=== PATIENT | male | born 1970 | race Caucasian/White ===

== ENCOUNTER 2016-11-21 13:08 | Inpatient (IN) | payer OTHER ==
[2016-11-21] MEDS ORDERED: HYDROmorphone 1 MG/ML 1 ML SYRINGE IVP STA (13:51)
[2016-11-21] MEDS ORDERED: SODIUM CHLORIDE 0.9% 1,000 ML IV STA (13:51)
--- NOTE | 2016-11-21 13:55 | ED ---
General Adult HPI - General Chief complaint: Extremity Problem,Nontraumatic Stated complaint: poss DVT left leg Time Seen by Provider: 11/21/16 13:35 Source: patient, family, RN notes reviewed Mode of arrival: ambulatory Limitations: no limitations - History of Present Illness Initial comments: Patient is a pleasant 46-year-old male presenting to the emergency Department with left leg problems. Symptoms have been ongoing for a few months. Patient has seen orthopedics and pain specialist for this. Patient had MRI showing disc herniation on the right side. Patient's discomfort however is on the left side. Patient states the pain management doctor did notice some weakness of the left leg. Patient was recently in the emergency department and diagnosed with superficial thrombosis. Patient was started on xarelto, then this was discontinued for epidural injection. Patient had leg swelling and repeat ultrasound showed DVT of the calf and behind the knee. Patient has been on blood thinners for the past 4 days. Patient is having some increase in swelling and increasing left calf pain especially with placing foot down to bear weight. Patient has continued left-sided back discomfort with left leg discomfort. - Related Data Home Medications Medication Instructions Recorded Confirmed Gabapentin [Neurontin] 300 mg PO TID 11/21/16 11/21/16 Previous Rx's Medication Instructions Recorded Diazepam [Valium] 10 mg PO TID #30 tablet 10/23/16 HYDROcodone/APAP 5-325MG [[place] 1 - 2 tab PO Q6HR PRN #30 tab 10/23/16 5-325] HYDROmorphone [Dilaudid] 2 mg PO Q3H PRN #30 tab 10/26/16 Rivaroxaban [Xarelto] 15 mg PO BID #42 tab 10/26/16 Allergies Allergy/AdvReac Type Severity Reaction Status Date / Time No Known Allergies Allergy Verified 11/21/16 13:59 Review of Systems ROS Statement: Those systems with pertinent positive or pertinent negative responses have been documented in the HPI. ROS Other: All systems not noted in ROS Statement are negative. Constitutional: Denies: fever Eyes: Denies: eye pain ENT: Denies: ear pain Respiratory: Denies: cough, dyspnea Cardiovascular: Denies: chest pain Endocrine: Denies: fatigue Gastrointestinal: Denies: abdominal pain Genitourinary: Denies: dysuria Musculoskeletal: Reports: back pain Skin: Denies: rash Neurological: Denies: weakness Past Medical History Past Medical History: Deep Vein Thrombosis (DVT) Additional Past Medical History / Comment(s): testicular ca, kidney stone, History of Any Multi-Drug Resistant Organisms: None Reported Additional Past Surgical History / Comment(s): Left testical removal, right broken thumb Past Psychological History: No Psychological Hx Reported Smoking Status: Never smoker Past Alcohol Use History: None Reported Past Drug Use History: None Reported General Exam Limitations: no limitations General appearance: alert, in no apparent distress Head exam: Present: atraumatic Eye exam: Present: normal appearance, PERRL ENT exam: Present: normal oropharynx Neck exam: Present: normal inspection Respiratory exam: Present: normal lung sounds bilaterally Cardiovascular Exam: Present: regular rate, normal rhythm Expanded Peripheral pulses: 2+: Posterior Tibialis (R), Posterior Tibialis (L), Dorsalis Pedis (R), Dorsalis Pedis (L) GI/Abdominal exam: Present: soft. Absent: tenderness Extremities exam: Present: calf tenderness (Left-sided), other (Straight leg raise positive on the left at 35.) Back exam: Present: normal inspection. Absent: tenderness Neurological exam: Present: alert, other (Decreased strength with dorsiflexion on the left, minimal.) Psychiatric exam: Present: normal affect, normal mood Skin exam: Absent: rash Course Vital Signs 11/21/16 11/21/16 13:35 15:42 Temperature 97.3 F L Pulse Rate 89 79 Respiratory 18 18 Rate Blood Pressure 131/85 127/97 O2 Sat by Pulse 95 95 Oximetry EKG Findings - EKG Comments: EKG Findings:: Normal sinus rhythm 73. Normal intervals. Normal axis. Normal QRS. Normal ST-T. Medical Decision Making - Medical Decision Making Patient reexamined and resting comfortably in bed. Patient and family updated on results and plan. Case was discussed in detail with Dr. Sotomayor, who will admit for Dr. Earl. Case was previously discussed with Dr. marc, who would like to consult. Patient has been back on xarelto for only 4 days however there is concern for possible extension of DVT. Ultrasound will need to be compared from the ultrasound done in the office this past week. Patient may need change in anticoagulant. Patient will also benefit from further evaluation for back problems and DVT. - Lab Data Result diagrams: 11/21/16 14:04 11/21/16 14:04 Lab Results 11/21/16 11/21/16 11/21/16 Range/Units 14:04 14:04 14:04 WBC 10.4 (3.8-10.6) k/uL RBC 4.97 (4.30-5.90) m/uL Hgb 14.7 (13.0-17.5) gm/dL Hct 43.6 (39.0-53.0) % MCV 87.8 (80.0-100.0) fL MCH 29.5 (25.0-35.0) pg MCHC 33.7 (31.0-37.0) g/dL RDW 13.1 (11.5-15.5) % Plt Count 225 (150-450) k/uL Neutrophils % 66 % Lymphocytes % 25 % Monocytes % 6 % Eosinophils % 2 % Basophils % 1 % Neutrophils # 6.8 (1.3-7.7) k/uL Lymphocytes # 2.6 (1.0-4.8) k/uL Monocytes # 0.6 (0-1.0) k/uL Eosinophils # 0.2 (0-0.7) k/uL Basophils # 0.1 (0-0.2) k/uL PT (9.0-12.0) sec INR (<1.1) APTT (22.0-30.0) sec Sodium 144 (137-145) mmol/L Potassium 3.8 (3.5-5.1) mmol/L Chloride 105 (98-107) mmol/L Carbon Dioxide 27 (22-30) mmol/L Anion Gap 12 mmol/L BUN 16 (9-20) mg/dL Creatinine 1.04 (0.66-1.25) mg/dL Est GFR (MDRD) Af Amer >60 (>60 ml/min/1.73 sqM) Est GFR (MDRD) Non-Af >60 (>60 ml/min/1.73 sqM) Glucose 116 H (74-99) mg/dL Calcium 9.0 (8.4-10.2) mg/dL Total Bilirubin 0.5 (0.2-1.3) mg/dL AST 35 (17-59) U/L ALT 70 (21-72) U/L Alkaline Phosphatase 69 (38-126) U/L Total Creatine Kinase 64 (55-170) U/L CK-MB (CK-2) 0.9 (0.0-2.4) ng/mL CK-MB (CK-2) Rel Index 1.4 Troponin I <0.012 (0.000-0.034) ng/mL Total Protein 7.1 (6.3-8.2) g/dL Albumin 4.1 (3.5-5.0) g/dL 11/21/16 Range/Units 14:04 WBC (3.8-10.6) k/uL RBC (4.30-5.90) m/uL Hgb (13.0-17.5) gm/dL Hct (39.0-53.0) % MCV (80.0-100.0) fL MCH (25.0-35.0) pg MCHC (31.0-37.0) g/dL RDW (11.5-15.5) % Plt Count (150-450) k/uL Neutrophils % % Lymphocytes % % Monocytes % % Eosinophils % % Basophils % % Neutrophils # (1.3-7.7) k/uL Lymphocytes # (1.0-4.8) k/uL Monocytes # (0-1.0) k/uL Eosinophils # (0-0.7) k/uL Basophils # (0-0.2) k/uL PT 12.0 (9.0-12.0) sec INR 1.2 (<1.1) APTT 29.0 (22.0-30.0) sec Sodium (137-145) mmol/L Potassium (3.5-5.1) mmol/L Chloride (98-107) mmol/L Carbon Dioxide (22-30) mmol/L Anion Gap mmol/L BUN (9-20) mg/dL Creatinine (0.66-1.25) mg/dL Est GFR (MDRD) Af Amer (>60 ml/min/1.73 sqM) Est GFR (MDRD) Non-Af (>60 ml/min/1.73 sqM) Glucose (74-99) mg/dL Calcium (8.4-10.2) mg/dL Total Bilirubin (0.2-1.3) mg/dL AST (17-59) U/L ALT (21-72) U/L Alkaline Phosphatase (38-126) U/L Total Creatine Kinase (55-170) U/L CK-MB (CK-2) (0.0-2.4) ng/mL CK-MB (CK-2) Rel Index Troponin I (0.000-0.034) ng/mL Total Protein (6.3-8.2) g/dL Albumin (3.5-5.0) g/dL - Radiology Data Radiology results: report reviewed (Ultrasound does show DVT including the femoral vein and popliteal vein.), image reviewed ( Chest x-ray shows no acute process.) Disposition Clinical Impression: Deep vein thrombosis of lower extremity, Leg weakness Disposition: ADMITTED IP TO THIS HOSP
[2016-11-21 14:18] LABS: Basophils # (A) 0.1 k/uL (0-0.2); Basophils % (A) 1 %; CH 30.3; CHCM 34.6; Eosinophils # (A) 0.2 k/uL (0-0.7); Eosinophils % (A) 2 %; HCT 43.6 % (39.0-53.0); HDW 2.62; HGB 14.7 gm/dL (13.0-17.5); Luc # (Auto) 0.11; Luc % (Auto) 1; Lymphocytes # (A) 2.6 k/uL (1.0-4.8); Lymphocytes % (A) 25 %; MCH 29.5 pg (25.0-35.0); MCHC 33.7 g/dL (31.0-37.0); MCV 87.8 fL (80.0-100.0); Mean Platelet Volume 7.1; Monocytes # (A) 0.6 k/uL (0-1.0); Monocytes % (A) 6 %; Neutrophils # (A) 6.8 k/uL (1.3-7.7); Neutrophils % (A) 66 %; RBC 4.97 m/uL (4.30-5.90); RDW 13.1 % (11.5-15.5); WBC 10.4 k/uL (3.8-10.6); WBC (Perox) 10.54
[2016-11-21 14:26] LABS: INR 1.2 (<1.1)
[2016-11-21 14:29] LABS: ALT 70 U/L (21-72); AST 35 U/L (17-59); Alkaline Phosphatase 69 U/L (38-126); Anion Gap 12 mmol/L; Blood Urea Nitrogen 16 mg/dL (9-20); Carbon Dioxide 27 mmol/L (22-30); Chloride 105 mmol/L (98-107); Glucose 116 mg/dL (74-99); Non-African American GFR(MDRD) >60 (>60 ml/min/1.73 sqM); Potassium 3.8 mmol/L (3.5-5.1); Sodium 144 mmol/L (137-145); Total Bilirubin 0.5 mg/dL (0.2-1.3); Total Protein 7.1 g/dL (6.3-8.2)
[2016-11-21 14:43] LABS: Creatine Kinase 64 U/L (55-170)
--- NOTE | 2016-11-21 14:50 | XR ---
EXAMINATION TYPE: XR chest 2V DATE OF EXAM: 11/21/2016 2:32 PM COMPARISON: NONE HISTORY: Weakness, shortness of breath, deep venous thrombosis TECHNIQUE: Frontal and lateral views of the chest are obtained. FINDINGS: There is no focal air space opacity, pleural effusion, or pneumothorax seen. The cardiac silhouette size is within normal limits. There are overlying cardiac leads The osseous structures ar e intact. IMPRESSION: No acute cardiopulmonary process.
[2016-11-21 14:56] LABS: Creatine Kinase MB 0.9 ng/mL (0.0-2.4); Troponin I <0.012 ng/mL (0.000-0.034)
--- NOTE | 2016-11-21 15:41 | US ---
EXAMINATION TYPE: US venous doppler duplex LE LT DATE OF EXAM: 11/21/2016 3:21 PM COMPARISON: Previous exam 26 October 2016 CLINICAL HISTORY: Pain. +SVT, started blood thinners last Tuesday after US at Dr Fofana's office SIDE PERFORMED: Left VESSELS IMAGED: External Iliac Vein (EIV) Common Femoral Vein Deep Femoral Vein Greater Saphenous Vein * Femoral Vein Popliteal Vein Small Saphenous Vein * Proximal Calf Veins (* superficial vessels) Grayscale, color Doppler and spectral imaging performed of the deep veins of the left lower extremity . Left Leg: Appears positive for DVT in distal CFV, Mid PV, and distal PV. Positive SVT in SSV. Some compressions deferred due to internal echoes seen. IMPRESSION: Deep venous thrombosis involving the left femoral and popliteal veins. There is lack of color flow and normal vascular waveform.
[2016-11-21] MEDS ORDERED: MORPHINE SULFATE 4 MG/ML SYRINGE IV PRN (15:49)
[2016-11-21] MEDS ORDERED: NALOXONE 0.4 MG/ML 1 ML VIAL IV PRN (15:49)
[2016-11-21] MEDS ORDERED: HEPARIN SODIUM,PORCINE 10,000 UNIT/ML 1 ML VIAL IV ONE (15:51)
[2016-11-21] MEDS ORDERED: HEPARIN SODIUM,PORCINE 5,000 UNIT/ML 1 ML VIAL IV PRN (15:51)
[2016-11-21 16:02] LABS: Appearance,Urine Clear (Clear); Bacteria,Urine Rare /hpf; Bilirubin,Urine Negative (Negative); Glucose,Urine (UA) Negative (Negative); Ketones,Urine Negative (Negative); Leukocyte Esterase,Urine Negative (Negative); Mucus,Urine Rare /hpf; Nitrite,Urine Negative (Negative); PH, Urine 5.5 (5.0-8.0); Particle Count 2300; Protein,Urine Negative (Negative); RBC,Urine 1 /hpf (0-5); Specific Gravity,Urine 1.016 (1.001-1.035); UA Billing (MACRO vs. MICRO) MICRO; Urobilinogen,Urine <2.0 mg/dL (<2.0); WBC,Urine 1 /hpf (0-5)
[2016-11-21] MEDS: HEPARIN SODIUM,PORCINE/D5W PMX 25,000 UNIT in DEXTROSE/WATER 1 500ML.BAG IV SCH (18:27)
[2016-11-21] MEDS: HYDROcodone/APAP 5-325MG 1 EACH TAB PO PRN (18:34)
[2016-11-21] MEDS ORDERED: GABAPENTIN 300 MG CAP PO STA (21:14)
[2016-11-21] MEDS: SODIUM CHLORIDE 0.9% 1,000 ML IV SCH (22:02)
[2016-11-22] MEDS: HYDROcodone/APAP 5-325MG 1 EACH TAB PO PRN ×2 (06:48→13:21)
[2016-11-22] MEDS ORDERED: RX INFO: IV CONTRAST WAS GIVEN 1 EACH MISC MISCELLANE PRN (09:11)
[2016-11-22 09:56] LABS: Basophils % (A) 0 %; CH 29.8; CHCM 33.1; Eosinophils # (A) 0.1 k/uL (0-0.7); Eosinophils % (A) 2 %; HCT 43.2 % (39.0-53.0); HDW 2.53; Luc # (Auto) 0.12; Luc % (Auto) 2; Lymphocytes # (A) 2.8 k/uL (1.0-4.8); Lymphocytes % (A) 37 %; MCH 29.2 pg (25.0-35.0); MCHC 32.3 g/dL (31.0-37.0); MCV 90.4 fL (80.0-100.0); Mean Platelet Volume 6.1; Monocytes # (A) 0.4 k/uL (0-1.0); Monocytes % (A) 5 %; Neutrophils # (A) 4.1 k/uL (1.3-7.7); Neutrophils % (A) 54 %; RBC 4.78 m/uL (4.30-5.90); RDW 13.2 % (11.5-15.5); WBC 7.5 k/uL (3.8-10.6); WBC (Perox) 7.83
[2016-11-22 10:09] VITALS: BMI 48.0
[2016-11-22] MEDS: HEPARIN SODIUM,PORCINE/D5W PMX 25,000 UNIT in DEXTROSE/WATER 1 500ML.BAG IV SCH ×3 (10:24→22:09)
[2016-11-22] MEDS: PANTOPRAZOLE 40 MG/10 ML VIAL IV SCH (11:26)
[2016-11-22] MEDS: IOHEXOL 350 MG/ML 25 ML BOTTLE (ORAL USE) PO PRN ×2 (11:43→13:17)
--- NOTE | 2016-11-22 13:10 | P.CNOR ---
History of Present Illness - [facility] Consult date: 11/22/16 Consult reason: low back pain, other History of present illness: Left lower extremity radiculopathy and weakness with herniated nucleus stenosis L5-S1 Patient's very pleasant 46-year-old male who is well known to our service. The patient started having significant problems in his back and left lower extremity at the end of September 2016. He was found to have a disc herniation at L5-S1 on the right was having severe left lower extremity radicular symptoms. He presented to the emergency room at that point and had aggressive conservative treatment initiated. He was not having significant relief despite oral medications and steroids and underwent a epidural steroid injection with Dr. Winchester in early October. He had some relief of his left lower extremity symptoms after the injection but was still having significant problems and pain toward his left gluteal area and left leg. He was scheduled to undergo further possible injection that his lumbar spine on outpatient basis. He was also scheduled to have a MRI of his pelvis and the soft tissues to further evaluate his symptoms but was unable to go through with the MRI because he was unable to tolerate laying down flat for the MRI itself. The same day of that a few days ago he developed significant swelling in his left lower extremity which continued to worsen. He saw Dr. Fofana was started on Xarelto and was ordered to have a ultrasound of his lower extremities which was positive for DVT and he was admitted the hospital. He denies any chest pain shortness of breath. He admits to history that his father had DVTs in his lower extremity. He denies any recent fevers chills or night sweats. Review of Systems Denies any chest pain shortness breath. Denies any fevers chills. He still feels he has weakness of his left lower extremity pain in his left gluteal area whenever he tries to stand up. He has significant weakness with standing and of his left lower extremity plantarflexion. Past Medical History Past Medical History: Deep Vein Thrombosis (DVT), Musculoskeletal Disorder ( Herniated nucleus pulses L5-S1 on the right. Left lower extremity radiculopathy with weakness.) Additional Past Medical History / Comment(s): testicular ca, kidney stone, herniated disc History of Any Multi-Drug Resistant Organisms: None Reported Past Surgical History: Hernia Repair Additional Past Surgical History / Comment(s): Left testical removal, right broken thumb Past Psychological History: No Psychological Hx Reported Smoking Status: Never smoker Past Alcohol Use History: None Reported Past Drug Use History: None Reported - Past Family History Father Additional Family Medical History / Comment(s): Vericose veins Medications and Allergies Home Medications Medication Instructions Recorded Confirmed Type Gabapentin [Neurontin] 300 mg PO TID 11/21/16 11/21/16 History Allergies Allergy/AdvReac Type Severity Reaction Status Date / Time No Known Allergies Allergy Verified 11/21/16 13:59 Physical Examination Osteopathic Statement: *. No significant issues noted on an osteopathic structural exam other than those noted in the History and Physical/Consult. - L Spine: dermatomal strength & reflexes left Strength: ankle plantar flexion: 4/5 (His left lower extremity has a compression stocking intact. There is some swelling in his thigh and calf. Some tenderness. He does have some weakness of plantarflexion.) Results - Labs Labs: Abnormal Lab Results - Last 24 Hours (Table) 11/21/16 11/22/16 Range/Units 23:45 08:59 APTT 165.4 H* 54.7 H (22.0-30.0) sec H & H 11/22/16 Range/Units 08:59 Hgb 14.0 (13.0-17.5) gm/dL Hct 43.2 (39.0-53.0) % Result Diagrams: 11/22/16 08:59 11/21/16 14:04 - Diagnostic results Lumbar MRI with/without contrast: report reviewed, image reviewed (Lumbar MRI done in September was reviewed that shows a herniated nucleus pulposus L5-S1 on the right. The results of his new ultrasound of his lower extremity since been reviewed.) Assessment and Plan Plan: Herniated nucleus pulposus L5-S1 on the right side Left lower extremity radiculopathy weakness Left lower extremity deep venous thrombosis with extension from the calf popliteal and thigh Currently on blood thinners Positive family history of DVTs The patient's acute issue is that of his deep venous thrombosis. He is getting acute care and workup for this which is appropriate. He is scheduled to undergo computed tomography scan of his chest today. He is being followed by medicine as well as hematology oncology and is on blood thinners for his DVT treatment. He has a compression stocking intact as well. Vascular surgery is also seeing him in regards to the blood clot and possible consideration for filter. The patient does have a known he herniated nucleus pulposis L5-S1 on the right. His symptoms are on the left almost exclusively and this is a bit peculiar in its presentation. Before the deep venous thrombosis. He was found have some superficial clotting at his left lower extremity. He has been having treatment for the radicular type symptoms at his left lower extremity and underwent an injection earlier this month with some relief at the lower extremity. Certainly the blood clot can be treated being significant way to his pain symptoms and that needs to be treated and dressed primarily at this point. I do not have any surgical plans for him at this point particular given his need for active blood thinners. This patient is also a personal friend of mine and we will continue to follow him along with you.
--- NOTE | 2016-11-22 14:30 | CT ---
EXAMINATION TYPE: CT angio chest DATE OF EXAM: 11/22/2016 2:24 PM COMPARISON: NONE HISTORY: Shortness of breath CONTRAST: CT chest with contrast and 3D reconstruction with MIP imaging is performed , patient injected with 10 0 mL of Omni 350. Contrast-enhanced CT of the chest was performed through the course of the pulmonary arteries with cristel g and mediastinal window settings submitted. 3D reconstruction with MIP imaging was also performed. PULMONARY ARTERIES: The pulmonary arteries and their major tributaries are patent. I do not see bob dence for sizable filling defect to suggest pulmonary embolic process. LUNGS: The lungs are clear and free of infiltrate. Mild linear atelectasis right lower lobe. No pulmo nary nodule or mass is detected. No pleural effusion. MEDIASTINUM: Thoracic aorta is of normal caliber . The heart is not enlarged. No evidence for media stinal mass. No mediastinal lymph nodes greater than 1cm. HILAR STRUCTURES: No evidence for mass. No hilar lymph nodes greater than 1 cm. UPPER ABDOMEN: No significant abnormality is seen. IMPRESSION: 1. No evidence for Pulmonary embolism at this time.
[2016-11-22] MEDS ORDERED: HYDROmorphone 2 MG TAB PO PRN (14:45)
[2016-11-22] MEDS ORDERED: TEMAZEPAM 15 MG CAP PO PRN (14:46)
[2016-11-22] MEDS ORDERED: ALPRAZolam 0.25 MG TAB PO PRN (14:46)
[2016-11-22] MEDS: DIAZEPAM 5 MG TAB PO SCH ×2 (15:02→21:27)
--- NOTE | 2016-11-22 15:37 | HP ---
DATE OF ADMISSION: 11/22/2016 CHIEF COMPLAINT: Pain and swelling of the left leg. HISTORY OF PRESENT ILLNESS: This 46-year-old gentleman with a past medical history of multiple medical problems including DJD, history of testicular cancer, history of herniated disc, history of hernia repair, being followed by Dr. Adan Earl. The patient is complaining of leg pain on the left side. The patient was evaluated by Dr. Fofana and patient was noted to have deep venous thrombosis. Patient came to [facility] and was admitted for further evaluation and treatment. Ultrasound done in the hospital showed DVT involving the left femoral and popliteal veins and the patient was admitted to the hospital for further evaluation and treatment. The patient started on IV heparin. The patient also had a chest CTA which showed no evidence of pulmonary embolism. An abdominal CAT scan was done, which is pending at this time. The patient also had back pain and degenerative joint disease and orthopedics is also following the patient. The patient is followed by Dr. Adan Earl. There is no history of fever, rigors or chills. No history of headache, loss of consciousness or seizures. No shortness of breath, hematochezia or melena at this time. Past medical history: History of degenerative joint disease, testicular cancer, kidney stones, herniated disc. Medications prior to admission: 1. Xarelto 15 mg p.o. b.i.d. 2. Dilaudid 2 mg q.3 p.r.n. 3. [place] 5 mg one to two q6h p.r.n. 4. Neurontin 300 mg t.i.d. 5. Valium 20 mg t.i.d. FAMILY HISTORY: History of varicose veins in the family, DVT in the family. SOCIAL HISTORY: No history of smoking, no history of alcohol intake. REVIEW OF SYSTEMS: HEENT: No diminished vision or diminished hearing. CARDIOVASCULAR: No angina or palpitations. RESPIRATORY: No cough, hemoptysis. GI: No nausea or vomiting. : No dysuria. Nervous system: No numbness or weakness. ALLERGY/IMMUNOLOGY: No asthma or hayfever. MUSCULOSKELETAL: As mentioned earlier. HEMATOLOGY/ONCOLOGY: No history of anemia. ENDOCRINE: No history of diabetes or hypothyroidism. CONSTITUTIONAL: As mentioned earlier. DERMATOLOGY: Negative. RHEUMATOLOGY: Negative. PSYCHIATRY: As mentioned earlier. PHYSICAL EXAMINATION: The patient is alert and oriented x3. Pulse is 57, blood pressure 119/67, respiratory rate 16, temperature 96.7, pulse ox 07% on 2 liters. HEENT: Conjunctivae normal. NECK: No jugular venous distention. CARDIOVASCULAR: S1, S2 muffled. RESPIRATORY: Breath sounds diminished at the bases. No rhonchi. No crackles. ABDOMEN: Soft, obese, nontender. No mass palpable. LEGS: Minimal swelling in the left leg present. Minimal tenderness also preset. Nervous system: Higher function as mentioned earlier. Moves all four limbs. No focal motor deficits. LYMPHATICS: No lymph nodes palpable in the neck, axillae or groin. SKIN: No ulcer, rash or bleeding. LABS: WBC, CBC within normal limits. Glucose 116. Ultrasound noted. Chest CT noted. ASSESSMENT: 1. Acute deep venous thrombosis of the left leg. 2. History of back pain and degenerative joint disease. 3. History of superficial venous thrombosis. 4. Obesity. Body mass index is 48.1. 5. History of testicular cancer. 6. History of renal nephrolithiasis. 7. History hernia repair. 8. FULL CODE. RECOMMENDATIONS AND DISCUSSION: In this 46-year-old gentleman who presented with multiple complex medical issues, we will monitor the patient closely, continue with current medications, continue symptomatic treatment. The patient was started on IV heparin per protocol at this time. Continue to monitor. Dr. Moyer will be consulted. Otherwise, we will await the results of the CAT scan. Symptomatic treatment. Guarded prognosis because of multiple complex medical issues. Further recommendations to follow. Neurology will also be consulted for leg weakness. A copy of dictation being forwarded to Dr. Adan Earl who is the primary care physician. BLY[facility] CHILDREN'S HOSPITALHenrietta
[2016-11-22] MEDS ORDERED: GABAPENTIN 300 MG CAP PO SCH (16:00)
--- NOTE | 2016-11-22 16:08 | P.GSCN ---
History of Present Illness History of present illness: 46-year-old white male, patient was seen recently in the office and diagnosed popliteal vein deep venous thrombosis patient was put on Cipro also during the week and he noticed more pain in his right leg and ultrasound showed there is a clot in the femoral vein and popliteal vein no shortness of breath patient has history of for herniated disc under care of orthopedics Ultrasound shows clot in the femoral vein and popliteal vein at this point patient is on heparin patient WAS seen by Dr. Moyer this patient has a history of testicle cancer in the past his been worked up for CAT scan On examination femorals are palpable dorsal pedis palpable there is no vascular compromise foot S tenderness Plan is continue with anticoagulation and patient has a Jobst stocking which will be continued if patient goes home we'll follow up in my office in a month thank you Past Medical History Past Medical History: Deep Vein Thrombosis (DVT), Musculoskeletal Disorder ( Herniated nucleus pulses L5-S1 on the right. Left lower extremity radiculopathy with weakness.) Additional Past Medical History / Comment(s): testicular ca, kidney stone, herniated disc History of Any Multi-Drug Resistant Organisms: None Reported Past Surgical History: Hernia Repair Additional Past Surgical History / Comment(s): Left testical removal, right broken thumb Past Psychological History: No Psychological Hx Reported Smoking Status: Never smoker Past Alcohol Use History: None Reported Past Drug Use History: None Reported - Past Family History Father Additional Family Medical History / Comment(s): Vericose veins Medications and Allergies Home Medications Medication Instructions Recorded Confirmed Type Gabapentin [Neurontin] 300 mg PO TID 11/21/16 11/21/16 History Allergies Allergy/AdvReac Type Severity Reaction Status Date / Time No Known Allergies Allergy Verified 11/21/16 13:59 Surgical - Exam Vital Signs Temp Pulse Resp BP Pulse Ox 97.3 F L 89 18 131/85 95 11/21/16 13:35 11/21/16 13:35 11/21/16 13:35 11/21/16 13:35 11/21/16 13:35 Results - Labs 11/22/16 08:59 11/21/16 14:04 Abnormal Lab Results - Last 24 Hours (Table) 11/21/16 11/22/16 11/22/16 Range/Units 23:45 08:59 15:44 APTT 165.4 H* 54.7 H 51.4 H (22.0-30.0) sec
[2016-11-22] MEDS: SODIUM CHLORIDE 0.9% 1,000 ML IV SCH ×2 (18:28→22:09)
[2016-11-22] MEDS: GABAPENTIN 300 MG CAP PO SCH (21:27)
--- NOTE | 2016-11-22 21:40 | P.CONS ---
History of Present Illness - Reason for Consult Consult date: 11/22/16 LLE DVT. Possible anticoagulant failure - History of Present Illness Mr Hernandez is a pleasant WM, who had presented with back pain since . This was left sided, with radiation down the LLE, with some LLE weakness. He was seen in the ER due to progression of symptoms on 10/23/16. MRI of the L spine showed disc herniation with neuroforaminal impingement, albiet on the right. He was discharged on pain medication, but returned due to persistent pain and weakness in the LLE. Doppler revealed a superficial thrombus in the small saphenous vein. He was discharged on Xarelto, but stopped it soon after so to be able to get epidural injections. He developed increasing swelling and heaviness, and had a doppler in Dr Fofana's office on 11/17/16. This revealed a DVT, and the pt was started back on Xarelto. He claims good compliance with the same. He , however, continued to have increasing pain and cramps, and came back to the ER on 11/21/16. Repeat doppler showed distal common femoral vein, as well as proximal and distal popliteal DVT. This raised the possibility of Xarelto failure. He was thus started on IV heparin, and consult placed for further evaluation and recommendations. He denied any prior h/o VTE, either personally or in the family. There is no h /o recent surgery, or prolonged travel. He did take systemic steroids for his back, but only since late 10/15. He has been more sedentary recently due to his back issues, but not prior to that. 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 He did not require any chemotherapy or radiation based on stage, but was on f/u till at least 10 years, without evidence of recurrence. Review of Systems Constitutional: Denies chills, Denies fever Eyes: denies blurred vision, denies pain Ears: deny: decreased hearing, ear discharge, earache, tinnitus Ears, nose, mouth and throat: Denies headache, Denies sore throat Cardiovascular: Denies chest pain, Denies shortness of breath Respiratory: Denies cough Gastrointestinal: Reports heartburn (occasional) Genitourinary: Reports as per HPI Musculoskeletal: Reports as per HPI (LL back pain, and LLE pain) Integumentary: Reports as per HPI Neurological: Denies numbness, Denies weakness Psychiatric: Denies anxiety, Denies depression Endocrine: Denies fatigue, Denies weight change Hematologic/Lymphatic: Reports thrombophilia Past Medical History Past Medical History: Deep Vein Thrombosis (DVT), Musculoskeletal Disorder ( Herniated nucleus pulses L5-S1 on the right. Left lower extremity radiculopathy with weakness.) Additional Past Medical History / Comment(s): testicular ca, kidney stone, herniated disc History of Any Multi-Drug Resistant Organisms: None Reported Past Surgical History: Hernia Repair Additional Past Surgical History / Comment(s): Left testical removal, right broken thumb Past Psychological History: No Psychological Hx Reported Smoking Status: Never smoker Past Alcohol Use History: None Reported Past Drug Use History: None Reported - Past Family History Father Additional Family Medical History / Comment(s): Vericose veins Medications and Allergies Home Medications Medication Instructions Recorded Confirmed Type Gabapentin [Neurontin] 300 mg PO TID 11/21/16 11/21/16 History Allergies Allergy/AdvReac Type Severity Reaction Status Date / Time No Known Allergies Allergy Verified 11/21/16 13:59 Physical Exam Vitals: Vital Signs Temp Pulse Pulse Resp BP BP Pulse Ox 11/22/16 18:11 97.5 F L 57 L 16 130/84 95 11/22/16 08:40 96.7 F L 56 L 16 123/76 95 11/22/16 06:28 57 L 16 119/67 97 11/22/16 05:46 52 L 16 119/69 98 11/22/16 00:50 54 L 16 122/75 97 11/21/16 22:00 53 L 16 118/63 98 Intake and Output 11/22/16 11/22/16 11/22/16 06:59 14:59 22:59 Intake Total 282.702 217.298 Output Total 300 Balance 282.702 -82.702 Intake: Intake, IV Titration 282.702 217.298 Amount Heparin Sodium,Porcine/ 282.702 217.298 D5w Pmx 25,000 unit In Dextrose/Water 1 500ml. bag @ 18 UNITS/KG/HR 45. 72 mls/hr IV .[id number] [facility] Rx#:[id number] Output: Urine 300 - Constitutional General appearance: no acute distress - EENT Eyes: PERRLA ENT: hearing grossly normal - Neck Neck: no lymphadenopathy Thyroid: bilateral: normal size - Respiratory Respiratory: bilateral: CTA - Cardiovascular Rhythm: regular Heart sounds: normal: S1, S2 - Gastrointestinal General gastrointestinal: normal bowel sounds, soft - Genitourinary left testicle absent. Rt WNL - Integumentary Integumentary: normal - Neurologic Neurologic: CNII-XII intact - Musculoskeletal LLE s/s as noted in the HPI Musculoskeletal: strength equal bilaterally - Psychiatric Psychiatric: A&O x's 3, appropriate affect Results CBC & Chem 7: 11/22/16 08:59 11/21/16 14:04 Labs: Abnormal Lab Results - Last 24 Hours (Table) 11/21/16 11/22/16 11/22/16 Range/Units 23:45 08:59 15:44 APTT 165.4 H* 54.7 H 51.4 H (22.0-30.0) sec Comments: MRI L spine report reviewed Venous US: report reviewed (10/26, and 11/21/16) Assessment and Plan (1) Deep vein thrombosis of lower extremity Narrative/Plan: The sequence of events leading to this presentation were carefully reviewed. He appears to have progressed from a SVT to a DVT. He did not take his Xarelto then, but the risk of a SSV SVT progressing is very low anyway. Currently, there is concern for possible progression on Xarelto. However, presentation could also be due to post phlebitic symptoms. - Vascular surgery has been consulted. I will await their opinion as to whether there has been progression or not, compared to the US done in their office. In the meantime , continue IV heparin. If there is no progression, he can be resumed on Xarleto. If there is, we will have to consider change of treatment - Check CTA chest for baseline - Given his h/o testicular cancer, and somewhat unexplained left sided pain, I will check CT of the AP, and tumor markers - If negative, a hypercoagulable workup will be done as an outpatient - Given his aggressive presentation, with no strong provoking factors, prolonged anticoagulation will need to be considered, especially if 1st line anticoagulant failure is suspected - Pt is already utilising thigh high compression stocking - There is no indication for filter placement, even in case of anticoagulant failure, as alternative medications are available. Status: Acute
[2016-11-23 07:34] VITALS: BP 128/79; PULSE 62; RESP 16; TEMP 97.7
[2016-11-23 08:38] LABS: Basophils % (A) 0 %; CH 29.9; CHCM 33.3; Eosinophils # (A) 0.1 k/uL (0-0.7); Eosinophils % (A) 2 %; HCT 44.6 % (39.0-53.0); HGB 14.5 gm/dL (13.0-17.5); Luc # (Auto) 0.11; Luc % (Auto) 1; Lymphocytes # (A) 2.7 k/uL (1.0-4.8); Lymphocytes % (A) 34 %; MCH 29.2 pg (25.0-35.0); MCHC 32.4 g/dL (31.0-37.0); MCV 90.1 fL (80.0-100.0); Mean Platelet Volume 6.3; Monocytes # (A) 0.4 k/uL (0-1.0); Monocytes % (A) 5 %; Neutrophils # (A) 4.6 k/uL (1.3-7.7); Neutrophils % (A) 58 %; RBC 4.95 m/uL (4.30-5.90); RDW 13.1 % (11.5-15.5); WBC (Perox) 8.03
[2016-11-23] MEDS: DIAZEPAM 5 MG TAB PO SCH (09:09)
[2016-11-23] MEDS: GABAPENTIN 300 MG CAP PO SCH (09:10)
[2016-11-23] MEDS: PANTOPRAZOLE 40 MG/10 ML VIAL IV SCH (09:10)
[2016-11-23 09:41] LABS: Anion Gap 11 mmol/L; Blood Urea Nitrogen 12 mg/dL (9-20); Calcium 8.9 mg/dL (8.4-10.2); Carbon Dioxide 27 mmol/L (22-30); Chloride 104 mmol/L (98-107); Glucose 100 mg/dL (74-99); Non-African American GFR(MDRD) >60 (>60 ml/min/1.73 sqM); Sodium 142 mmol/L (137-145)
--- NOTE | 2016-11-23 10:12 | CONS ---
DATE OF CONSULTATION: 11/22/2016 CHIEF COMPLAINT: Left leg weakness. HISTORY OF PRESENT ILLNESS: The patient is a pleasant 46-year-old male who is being evaluated today on 11/22/2016 by the neurology service per the request of Dr. Sotomayor for weakness in the left lower extremity. The patient has been complaining of low back pain that was mostly on the left side radiating to his left hip, which started approximately 3 months ago. His pain had been gradually getting worse and he was evaluated by Dr. Montana and Dr. Winchester and he was diagnosed with a disc herniation at L5-S1 with radicular pain. He did undergo dural epidural injections without any significant pain relief. The patient reports having weakness now in his left lower extremity and he was brought into [facility] Emergency Room for further work-up and management. Dr. Montana has been consulted. He is also complaining of burning pain in his left foot. He is currently on Neurontin 300 mg 3 times daily. He reports mild improvements on Neurontin, but the symptoms are still significant. He rates his pain at 8/10 in intensity at the time of my evaluation. Several weeks ago, he was diagnosed with superficial clot and was started on Pradaxa. On this admission, a lower extremity venous Doppler was done, which showed a deep venous thrombosis of the left leg. He is still on Pradaxa at this time. A CT angiogram of the chest showed no evidence of any pulmonary embolism. His CBC and comprehensive metabolic profile was reviewed and it was normal. PAST MEDICAL HISTORY: Deep venous thrombosis, lumbosacral displaced disc disease, degenerative joint disease, history of nephrolithiasis and testicular cancer. SOCIAL HISTORY: He denies any tobacco, alcohol or drug use. FAMILY HISTORY: Positive for deep venous thrombosis. HOME MEDICATIONS: Reviewed in the chart. ALLERGIES: No known drug allergies. REVIEW OF SYSTEMS: CONSTITUTIONAL: Negative. EYES: Negative. ENT: Negative. CARDIOVASCULAR: As mentioned above. RESPIRATORY: Negative. NEUROLOGICAL: As mentioned above. He does report some numbness and tingling in his left lower extremity. GASTROINTESTINAL: Negative. GENITOURINARY: Positive for history of testicular cancer. PSYCHIATRIC: Negative. MUSCULOSKELETAL: As mentioned above. ENDOCRINE: Negative. DERMATOLOGICAL: Negative. PHYSICAL EXAM: Vital signs show a temperature of 96.7, pulse 56, respirations 16, blood pressure 123/76. GENERAL APPEARANCE: The patient is a well-developed male who appears to be in no acute distress. HEENT: Normocephalic, atraumatic, no facial asymmetry is seen. Neck is supple with no masses felt. CARDIOVASCULAR: Bradycardic rate with a normal rhythm. ABDOMEN: Nontender, nondistended. EXTREMITIES: No edema. A stocking is being worn on the left lower extremity. NEUROLOGICAL EXAM: The patient is alert, aware, and oriented x3. Speech and language are normal. Strength is 5-/5 in the left lower extremity and 5/5 elsewhere. Straight leg raise sign is positive on the left. Deep tendon reflexes were normal and symmetrical. Sensory exam showed diminished light touch sensation on the left lower extremity compared to the right. No tremors or seizure-like activity is seen. No facial asymmetry is noticed on cranial nerve testing. Speech and language are normal. IMPRESSION: 1. Left lower extremity weakness and sensory deficit. 2. Lumbago. 3. Left lower extremity radicular pain. 4. Lumbosacral displaced disc disease. 5. Left lower extremity deep venous thrombosis. 6. Left lower extremity neuropathic pain. RECOMMENDATIONS: The patient does have a recent history of a displaced disc disease at L5-S1 and he is being followed by Dr. Montana for this. He is having some weakness and numbness in the left lower extremity along with significant neuropathic pain. At this time, it is difficult to assess how much of the pain is secondary to the disc herniation versus the deep venous thrombosis. He is on Neurontin, which is helping somewhat with his neuropathic pain. I discussed with him various treatment options and I will increase his Neurontin to 600 mg 3 times daily. I will consult physical therapy. Continue anticoagulation therapy for his deep venous thrombosis and superficial vein clot. The patient will need a nerve conduction study/EMG, which will be done in the outpatient setting. Continue the rest of your current work-up and management. I will continue to follow with you. Further recommendations to follow. Thank you for allowing me to participate in the care of your patient. If you have any questions, please feel free to contact me.
--- NOTE | 2016-11-23 10:33 | CT ---
EXAMINATION TYPE: CT abdomen pelvis w con DATE OF EXAM: 11/23/2016 9:51 AM COMPARISON: NONE HISTORY: 46 year-old male history of testicular cancer, left-sided abdominal pain, left lower extremi ty DVT. TECHNIQUE: Contiguous axial scanning of the abdomen and pelvis following administration of 100 ml Omn ipaque 300 IV contrast. Delayed images through the kidneys and coronal/sagittal reconstructions perf ormed. CT DLP: 2506 mGycm Automated exposure control for dose reduction was used. FINDINGS: Heart is normal size without pericardial effusion. Some strandy atelectasis posterior right lung base . No pleural effusion. No focal liver lesion or biliary ductal dilatation. Portal venous system is patent. Gallbladder, adrenal glands, kidneys, spleen, and pancreas appear within normal limits. No dilated small bowel, free fluid, or free air. Some prominent but not enlarged 5 mm right mesenteri c lymph nodes are noted. Otherwise, no mesenteric or retroperitoneal lymphadenopathy. A short portion of the normal air-filled appendix is seen. Scattered mild to moderate stool within th e colon without pericolonic inflammatory change. Bladder is urine distended. Central prostatic calcifications are noted. Rectum appears normal. A bord niurka prominent 7 mm lymph node at the left external iliac chain is nonspecific, probably reactive, axial image 92. Otherwise, no abnormal inguinal, pelvic, or femoral lymphadenopathy. Bones: There is superior and anterior femoral head neck junction osseous excrescences with mild spurr ing along the lateral acetabular roofs. Findings can be seen in the setting of femoral acetabular imp ingement syndrome and can be correlated with physical exam testing. Degenerative disc disease at L5-S1 with a right paracentral disc herniation which could impinge the t raversing right S1 nerve root. Along with facet spurring, there is narrowing of the right L5-S1 neuro foramen as well. IMPRESSION: 1. NO CLEAR EVIDENCE FOR METASTATIC DISEASE OR DEFINITE SUSPICIOUS LYMPHADENOPATHY. A FEW PROMINENT R IGHT MESENTERIC LYMPH NODES MEASURE UP TO 5 MM AND A LEFT EXTERNAL ILIAC CHAIN LYMPH NODE MEASURES 7 MM. THESE ARE NONSPECIFIC AND PROBABLY REACTIVE/POST INFLAMMATORY. 2. L5-S1 RIGHT PARACENTRAL DISC HERNIATION MAY IMPINGE THE TRAVERSING RIGHT S1 NERVE ROOT. 3. SOME BONY CHANGES AT THE HIPS CAN BE SEEN IN THE SETTING OF FEMORAL ACETABULAR IMPINGEMENT SYNDROM E. CORRELATE WITH PHYSICAL EXAM TESTING.
--- NOTE | 2016-11-23 11:33 | P.PN ---
Subjective Patient resting comfortably in bed denies chest pain or shortness of breath. Continues with low back pain with weakness and appears seizure to left lower extremity . CT of chest and abdomen negative for malignancy Objective - Vital Signs Vital signs: Vital Signs Temp 97.7 F 11/23/16 07:00 Pulse 62 11/23/16 08:00 Resp 16 11/23/16 08:00 BP 128/79 11/23/16 07:00 Pulse Ox 95 11/23/16 07:00 Intake & Output 11/22/16 11/23/16 11/23/16 18:59 06:59 18:59 Intake Total 833.482 9115.675 Output Total 300 1600 Balance -82.702 -542.325 Intake: IV 260 Sodium Chloride 0.9% 1, 260 000 ml @ 20 mls/hr IV . Q24H [facility] Rx#:[id number] Intake, IV Titration 217.298 447.675 Amount Heparin Sodium,Porcine/ 217.298 447.675 D5w Pmx 25,000 unit In Dextrose/Water 1 500ml. bag @ 18 UNITS/KG/HR 45. 72 mls/hr IV .[id number] [facility] Rx#:[id number] Oral 350 Output: Urine 300 1600 Other: Voiding Method Toilet Toilet # Voids 2 - Constitutional General appearance: Present: obese - EENT Eyes: Present: PERRLA Ears: bilateral: normal - Neck Neck: Present: normal ROM - Respiratory Respiratory: bilateral: CTA - Cardiovascular Rhythm: regular - Gastrointestinal General gastrointestinal: Present: soft - Integumentary Integumentary: Present: normal - Neurologic Neurologic: Present: CNII-XII intact - Musculoskeletal Musculoskeletal: Present: left sided weakness - Psychiatric Psychiatric: Present: A&O x's 3, appropriate affect, intact judgment & insight - Labs CBC & Chem 7: 11/23/16 08:12 11/23/16 08:12 Labs: Abnormal Lab Results - Last 24 Hours (Table) 11/22/16 11/23/16 11/23/16 Range/Units 15:44 08:12 08:12 APTT 51.4 H 65.2 H (22.0-30.0) sec Glucose 100 H (74-99) mg/dL - Imaging and Cardiology Chest x-ray: report reviewed CT scan - abdomen: report reviewed CT scan - chest: report reviewed Assessment and Plan Plan: Assessment Acute on deep venous thrombosis of left leg History of back pain or degenerative joint disease left lower extremity weakness with radiculopathy spinal stenosis Obesity of body mass index 40.1 History of testicular cancer History of renal nephrolithiasis Patient is full code Plan Continue consultation with Dr. Moyer regarding the testicular cancer Surgical consultation Dr. Fofana Spinal stenosis Dr. Prem Loza neurology leg weakness Hopeful discharge home soon on anticoagulants
--- NOTE | 2016-11-23 16:47 | P.DS ---
Providers Date of admission: 11/21/16 15:52 Expected date of discharge: 11/23/16 Attending physician: Adan Earl Primary care physician: Adan Earl Hospital Course: 46-year-old male presented to the emergency room with complaints of left leg pain patient was evaluated by Dr. Fofana and found to have a DVT. Patient has been on Xarelto. CT of the chest and abdomen to show no metastasis from testicular cancer or all pulmonary embolism. Patient will be started on Pradaxa Dr. Moyer called prescription in. Patient is to follow up with Dr. Aguayo for leg pain Dr. Franklin for spinal stenosis and Dr. Moyer. Assessment acute deep vein thrombosis left leg history of back pain and degenerative joint disease lumbar spinal stenosis with left leg weakness and radiculopathy obesity body mass index 40.1 history of testicular cancer history of renal nephrolithiasis Plan patient is to start Pradaxa hundred 50 mg b.i.d. follow up with Dr. Comfort Carmona and family physician Dr. Adan Earl Plan - Discharge Summary Discharge Medication List Diazepam [Valium] 10 mg PO TID #30 tablet 10/23/16 [Rx] HYDROcodone/APAP 5-325MG [[place] 5-325] 1 - 2 tab PO Q6HR PRN #30 tab 10/23/16 [ Rx] HYDROmorphone [Dilaudid] 2 mg PO Q3H PRN #30 tab 10/26/16 [Rx] Gabapentin [Neurontin] 300 mg PO TID 11/21/16 [History] Temazepam [Restoril] 15 mg PO HS PRN #0 cap 11/23/16 [Rx] Follow up Appointment(s)/Referral(s): Adan Earl MD [Primary Care Provider] - 1-2 days Kole Loza MD [STAFF PHYSICIAN] - 1 Week Rashel Fofana MD [STAFF PHYSICIAN] - 4 Weeks Discharge Disposition: HOME SELF-CARE
[2016-11-23] MEDS ORDERED: DABIGATRAN 150 MG CAP PO STA (16:58)
--- NOTE | 2016-11-23 17:19 | P.PN ---
Subjective Principal diagnosis: DVT Pt seen in follow up, he is anxious to leave today, denies any bleeding, progressive leg swelling or pain, he is fully ambulatory Objective - Vital Signs Vital signs: Vital Signs Temp 97.7 F 11/23/16 07:00 Pulse 62 11/23/16 16:00 Resp 16 11/23/16 16:00 BP 128/79 11/23/16 07:00 Pulse Ox 95 11/23/16 07:00 Intake & Output 11/22/16 11/23/16 11/23/16 18:59 06:59 18:59 Intake Total 182.329 8291.675 Output Total 300 1600 Balance -82.702 -542.325 Intake: IV 260 Sodium Chloride 0.9% 1, 260 000 ml @ 20 mls/hr IV . Q24H [facility] Rx#:[id number] Intake, IV Titration 217.298 447.675 Amount Heparin Sodium,Porcine/ 217.298 447.675 D5w Pmx 25,000 unit In Dextrose/Water 1 500ml. bag @ 18 UNITS/KG/HR 45. 72 mls/hr IV .[id number] [facility] Rx#:[id number] Oral 350 Output: Urine 300 1600 Other: Voiding Method Toilet Toilet # Voids 2 4 - Constitutional General appearance: Present: cooperative, no acute distress, obese - Respiratory Details: respirations even and unlabored - Neurologic Neurologic: Present: CNII-XII intact - Musculoskeletal Musculoskeletal: Present: strength equal bilaterally - Psychiatric Psychiatric: Present: A&O x's 3, appropriate affect, intact judgment & insight - Labs CBC & Chem 7: 11/23/16 08:12 11/23/16 08:12 Labs: Abnormal Lab Results - Last 24 Hours (Table) 11/23/16 11/23/16 Range/Units 08:12 08:12 APTT 65.2 H (22.0-30.0) sec Glucose 100 H (74-99) mg/dL - Imaging and Cardiology Venous US: report reviewed (Dr. Moyer reviewed ) Assessment and Plan (1) Deep vein thrombosis of lower extremity Narrative/Plan: Dr. Moyer discussed the case at length with vascular and reviewed doppler reports. It is not exactly clear to what degree, if any, the popliteal DVT has propagated so it is difficult to say if pt failed Xarelto or not. Since there is a degree of uncertainty alternate anticoagulation recommended. Lovenox and pradaxa copay verifications were checked and pt opted for pradaxa. 1st dose when heparin drip discontinued then pt will take 150mg PO BID. Dr. Moyer did discuss case with pt and , all questions answered. Status: Acute
== END 2016-11-23 17:25 | disposition home or self-care (01) | DRG 301 ==
LOC: EC 13:08 → 4MS4W 15:52 → 5MS5E 11-22 01:37
PROVIDERS: ADMIT Family Medicine; ATTEND Family Medicine
DX: I82.432 Acute embolism and thrombosis of left popliteal vein (principal); R00.1 Bradycardia, unspecified; T45.516A Underdosing of anticoagulants, initial encounter; M47.26 Other spondylosis with radiculopathy, lumbar region; M48.06 Spinal stenosis, lumbar region; R20.2 Paresthesia of skin; M51.17 Intervertebral disc disorders with radiculopathy, lumbosacral region; Z85.47 Personal history of malignant neoplasm of testis; Z87.442 Personal history of urinary calculi; Z79.01 Long term (current) use of anticoagulants; Z79.891 Long term (current) use of opiate analgesic; Z79.899 Other long term (current) drug therapy; Z87.81 Personal history of (healed) traumatic fracture; Z86.718 Personal history of other venous thrombosis and embolism; Z83.2 Family history of diseases of the blood and blood-forming organs and certain disorders involving the immune mechanism; Z90.79 Acquired absence of other genital organ(s)
CPT/HCPCS: 36415; 71020; 71275; 74177; 80048; 80053; 81001; 82550; 82553; 84484; 85025; 85610; 85730; 93005; 96361; 96365; 96366; 96375; 96376; 99285

== ENCOUNTER 2016-11-24 17:19 | Inpatient (IN) | payer OTHER ==
[2016-11-24 16:17] LABS: Blood Urea Nitrogen 21 mg/dL (9-20); Non-African American GFR(MDRD) >60 (>60 ml/min/1.73 sqM)
--- NOTE | 2016-11-24 17:00 | CT ---
EXAMINATION TYPE: CT angio chest DATE OF EXAM: 11/24/2016 4:51 PM COMPARISON: Previous study dated 11/22/2016. HISTORY: Patient has new onset left side chest pain and diaphoresis with a history of DVT. CT DLP: 508.2 mGycm Automated exposure control for dose reduction was used. CONTRAST: CTA scan of the thorax is performed with IV Contrast, patient injected with 100 mL of Omnipaque 350, pulmonary embolism protocol. . FINDINGS: There is some dependent atelectasis within the lung bases. The lungs are otherwise clear. T here is no pneumonia, edema or parenchymal lesion. There is no significant axillary, mediastinal or hilar adenopathy. There is no pleural or pericardial fluid. There is evidence of thrombus within the third order branches on the right and the second order branc hes on the left. The aorta is normal in caliber without evidence of dissection. The heart is not enlarged. There is a small hiatal hernia. Visualized upper abdominal structures are unremarkable. There is mild hypertrophic spondylosis within the spine. IMPRESSION: 1. THIS EXAMINATION IS POSITIVE FOR A SMALL AMOUNT OF PULMONARY THROMBUS IN THE SECOND AND THIRD ORDE R BRANCHES BILATERALLY. THERE IS NO EVIDENCE OF RIGHT HEART STRAIN. 2. SMALL HIATAL HERNIA. 3. MILD DEGENERATIVE CHANGES WITHIN THE SPINE.
[2016-11-24] MEDS ORDERED: HEPARIN SODIUM,PORCINE 10,000 UNIT/ML 1 ML VIAL IV ONE (17:57)
[2016-11-24 18:29] LABS: Basophils % (A) 0 %; CH 30.2; CHCM 34.5; Eosinophils # (A) 0.1 k/uL (0-0.7); Eosinophils % (A) 1 %; HCT 46.3 % (39.0-53.0); HDW 2.52; HGB 15.9 gm/dL (13.0-17.5); Luc # (Auto) 0.17; Luc % (Auto) 2; Lymphocytes # (A) 2.8 k/uL (1.0-4.8); Lymphocytes % (A) 27 %; MCH 30.1 pg (25.0-35.0); MCHC 34.3 g/dL (31.0-37.0); MCV 87.7 fL (80.0-100.0); Mean Platelet Volume 6.3; Monocytes # (A) 0.6 k/uL (0-1.0); Monocytes % (A) 6 %; Neutrophils # (A) 6.6 k/uL (1.3-7.7); Neutrophils % (A) 64 %; RBC 5.27 m/uL (4.30-5.90); WBC 10.3 k/uL (3.8-10.6); WBC (Perox) 10.71
[2016-11-24 18:41] LABS: INR 1.1 (<1.1); Partial Thromboplastin Time 30.7 sec (22.0-30.0); Prothrombin Time 11.1 sec (9.0-12.0)
[2016-11-24] MEDS: HEPARIN SODIUM,PORCINE/D5W PMX 25,000 UNIT in DEXTROSE/WATER 1 500ML.BAG IV SCH (18:42)
[2016-11-24] MEDS ORDERED: SODIUM CHLORIDE 0.9% 1,000 ML IV STA (18:47)
[2016-11-24 18:50] LABS: ALT 64 U/L (21-72); AST 35 U/L (17-59); Alkaline Phosphatase 80 U/L (38-126); Anion Gap 15 mmol/L; Blood Urea Nitrogen 20 mg/dL (9-20); Calcium 9.6 mg/dL (8.4-10.2); Carbon Dioxide 26 mmol/L (22-30); Chloride 100 mmol/L (98-107); Creatine Kinase 166 U/L (55-170); Glucose 94 mg/dL (74-99); Magnesium 1.9 mg/dL (1.6-2.3); Non-African American GFR(MDRD) >60 (>60 ml/min/1.73 sqM); Potassium 4.3 mmol/L (3.5-5.1); Sodium 141 mmol/L (137-145); Total Protein 8.1 g/dL (6.3-8.2)
--- NOTE | 2016-11-24 18:59 | ED ---
General Adult HPI - General Chief complaint: Chest Pain Stated complaint: CT POSITIVE FOR PE Time Seen by Provider: 11/24/16 17:45 Source: patient, RN notes reviewed Mode of arrival: wheelchair Limitations: no limitations - History of Present Illness Initial comments: This is a 46-year-old male who presents to the emergency department with a past medical history significant for a DVT. Patient was released from the hospital yesterday with her axilla for his DVT in his left leg. Patient states today he was driving home he started having some chest pain on the left side and as well in the right side it was sharp in nature she went to his primary medical care doctor's office. The doctor sent him in for a CAT scan of his chest. The CAT scan showed bilateral PEs. Patient came to the emergency department immediately. Patient states he currently has some mild chest pain but he has never expressed any shortness of breath. Patient denies any recent fever chills or cough. Patient denies any recent injury or trauma to the leg. Patient denies any recent trip or travel. - Related Data Home Medications Medication Instructions Recorded Confirmed Dabigatran [Pradaxa] 150 mg PO BID 11/24/16 11/24/16 Diazepam [Valium] 10 mg PO DAILY PRN 11/24/16 11/24/16 Gabapentin 600 mg PO TID 11/24/16 11/24/16 HYDROcodone/APAP 5-325MG [[place] 1 tab PO TID PRN 11/24/16 11/24/16 5-325] Ketorolac [Toradol] 10 mg PO BID PRN 11/24/16 11/24/16 Allergies Allergy/AdvReac Type Severity Reaction Status Date / Time No Known Allergies Allergy Verified 11/24/16 18:29 Review of Systems ROS Statement: Those systems with pertinent positive or pertinent negative responses have been documented in the HPI. ROS Other: All systems not noted in ROS Statement are negative. Past Medical History Past Medical History: Deep Vein Thrombosis (DVT), Musculoskeletal Disorder Additional Past Medical History / Comment(s): testicular ca, kidney stone, herniated disc History of Any Multi-Drug Resistant Organisms: None Reported Past Surgical History: Hernia Repair Additional Past Surgical History / Comment(s): Left testical removal, right broken thumb Past Psychological History: No Psychological Hx Reported Smoking Status: Never smoker Past Alcohol Use History: None Reported Past Drug Use History: None Reported - Past Family History Father Additional Family Medical History / Comment(s): Vericose veins General Exam - General Exam Comments Initial Comments: GENERAL: Patient is well-developed and well-nourished. Patient is nontoxic and well- hydrated and is in no acute distress. ENT: Neck is soft and supple. No significant lymphadenopathy is noted. Oropharynx is clear. Moist mucous membranes. Neck has full range of motion without eliciting any pain. EYES: The sclera were anicteric and conjunctiva were pink and moist. Extraocular movements were intact and pupils were equal round and reactive to light. Eyelids were unremarkable. PULMONARY: Unlabored respirations. Good breath sounds bilaterally. CARDIOVASCULAR: There is a regular rate and rhythm without any murmurs gallops or rubs. Femoral pulses are equal bilaterally ABDOMEN: Soft and nontender with normal bowel sounds. No palpable organomegaly was noted. There is no palpable pulsatile mass. SKIN: Skin is clear with no lesions or rashes and otherwise unremarkable. NEUROLOGIC: Patient is alert and oriented x3. Cranial nerves II through XII are grossly intact. Motor and sensory are also intact. Normal speech, volume and content. Symmetrical smile. MUSCULOSKELETAL: Normal extremities with adequate strength and full range of motion. Left lower extremity is mildly swollen LYMPHATICS: No significant lymphadenopathy is noted PSYCHIATRIC: Normal psychiatric evaluation. Limitations: no limitations Course Vital Signs 11/24/16 11/24/16 17:45 18:49 Temperature 97.0 F L Pulse Rate 79 74 Respiratory 18 16 Rate Blood Pressure 138/82 103/55 O2 Sat by Pulse 95 97 Oximetry Medical Decision Making - Medical Decision Making EKG shows normal sinus rhythm at [address] interval is on a 72 QRS is under QT interval 384 QTC is 428. Patient's EKG shows normal sinus rhythm at [address] interval 272 QRS is 100 QT interval 384 QTC is 428. Patient's EKG shows no ST segment elevation or depression or T-wave abdomen is noted. I spoke with Dr. Zaldivar about the patient's condition and he recommended placing the patient back on heparin and they will figure out what to send the patient home at a later date. I spoke with Dr. Earl he agreed to admit the patient admitted the patient in consult to hematology wrote admitting orders and continue heparin for - Lab Data Result diagrams: 11/24/16 18:00 11/24/16 18:00 Lab Results 11/24/16 11/24/16 11/24/16 Range/Units 15:50 18:00 18:00 WBC 10.3 (3.8-10.6) k/uL RBC 5.27 (4.30-5.90) m/uL Hgb 15.9 (13.0-17.5) gm/dL Hct 46.3 (39.0-53.0) % MCV 87.7 (80.0-100.0) fL MCH 30.1 (25.0-35.0) pg MCHC 34.3 (31.0-37.0) g/dL RDW 13.0 (11.5-15.5) % Plt Count 264 (150-450) k/uL Neutrophils % 64 % Lymphocytes % 27 % Monocytes % 6 % Eosinophils % 1 % Basophils % 0 % Neutrophils # 6.6 (1.3-7.7) k/uL Lymphocytes # 2.8 (1.0-4.8) k/uL Monocytes # 0.6 (0-1.0) k/uL Eosinophils # 0.1 (0-0.7) k/uL Basophils # 0.0 (0-0.2) k/uL PT (9.0-12.0) sec INR (<1.1) APTT (22.0-30.0) sec Sodium (137-145) mmol/L Potassium (3.5-5.1) mmol/L Chloride (98-107) mmol/L Carbon Dioxide (22-30) mmol/L Anion Gap mmol/L BUN 21 H (9-20) mg/dL Creatinine 1.12 (0.66-1.25) mg/dL Est GFR (MDRD) Af Amer >60 (>60 ml/min/1.73 sqM) Est GFR (MDRD) Non-Af >60 (>60 ml/min/1.73 sqM) Glucose (74-99) mg/dL Calcium (8.4-10.2) mg/dL Magnesium (1.6-2.3) mg/dL Total Bilirubin (0.2-1.3) mg/dL AST (17-59) U/L ALT (21-72) U/L Alkaline Phosphatase (38-126) U/L Total Creatine Kinase 166 (55-170) U/L CK-MB (CK-2) 2.0 (0.0-2.4) ng/mL CK-MB (CK-2) Rel Index 1.2 Troponin I <0.012 (0.000-0.034) ng/mL Total Protein (6.3-8.2) g/dL Albumin (3.5-5.0) g/dL 11/24/16 11/24/16 Range/Units 18:00 18:00 WBC (3.8-10.6) k/uL RBC (4.30-5.90) m/uL Hgb (13.0-17.5) gm/dL Hct (39.0-53.0) % MCV (80.0-100.0) fL MCH (25.0-35.0) pg MCHC (31.0-37.0) g/dL RDW (11.5-15.5) % Plt Count (150-450) k/uL Neutrophils % % Lymphocytes % % Monocytes % % Eosinophils % % Basophils % % Neutrophils # (1.3-7.7) k/uL Lymphocytes # (1.0-4.8) k/uL Monocytes # (0-1.0) k/uL Eosinophils # (0-0.7) k/uL Basophils # (0-0.2) k/uL PT 11.1 (9.0-12.0) sec INR 1.1 (<1.1) APTT 30.7 H (22.0-30.0) sec Sodium 141 (137-145) mmol/L Potassium 4.3 (3.5-5.1) mmol/L Chloride 100 (98-107) mmol/L Carbon Dioxide 26 (22-30) mmol/L Anion Gap 15 mmol/L BUN 20 (9-20) mg/dL Creatinine 1.12 (0.66-1.25) mg/dL Est GFR (MDRD) Af Amer >60 (>60 ml/min/1.73 sqM) Est GFR (MDRD) Non-Af >60 (>60 ml/min/1.73 sqM) Glucose 94 (74-99) mg/dL Calcium 9.6 (8.4-10.2) mg/dL Magnesium 1.9 (1.6-2.3) mg/dL Total Bilirubin 1.0 (0.2-1.3) mg/dL AST 35 (17-59) U/L ALT 64 (21-72) U/L Alkaline Phosphatase 80 (38-126) U/L Total Creatine Kinase (55-170) U/L CK-MB (CK-2) (0.0-2.4) ng/mL CK-MB (CK-2) Rel Index Troponin I (0.000-0.034) ng/mL Total Protein 8.1 (6.3-8.2) g/dL Albumin 4.8 (3.5-5.0) g/dL Critical Care Time Critical Care Time: Yes Total Critical Care Time: 35 Disposition Clinical Impression: Pulmonary embolism Disposition: ADMITTED IP TO THIS [facility] Time of Disposition: 19:14
[2016-11-24 19:02] LABS: Troponin I <0.012 ng/mL (0.000-0.034)
[2016-11-24] MEDS ORDERED: SODIUM CHLORIDE 0.9% 1,000 ML IV ONE (19:16)
[2016-11-24 20:50] VITALS: BMI 33.5
[2016-11-25] MEDS: HEPARIN SODIUM,PORCINE/D5W PMX 25,000 UNIT in DEXTROSE/WATER 1 500ML.BAG IV SCH ×3 (05:15→20:18)
[2016-11-25] MEDS: GABAPENTIN 300 MG CAP PO SCH ×3 (07:45→23:03)
[2016-11-25] MEDS: HYDROcodone/APAP 5-325MG 1 EACH TAB PO PRN ×3 (07:45→23:03)
--- NOTE | 2016-11-25 11:48 | US ---
EXAMINATION TYPE: US venous doppler duplex LE BI DATE OF EXAM: 11/25/2016 11:23 AM COMPARISON: 11/21/2016 CLINICAL HISTORY: LLE DVT, new PE. Check for progression. SIDE PERFORMED: VESSELS IMAGED: External Iliac Vein (EIV) Common Femoral Vein Deep Femoral Vein Greater Saphenous Vein * Femoral Vein Popliteal Vein Small Saphenous Vein * Proximal Calf Veins (* superficial vessels) TECHNOLOGIST IMPRESSION: wnl Right Leg: Negative for DVT Left Leg: Positive for DVT from proximal pop to distal pop, patient admitted on 11-21-16 for DVT, fin dings today very similar. IMPRESSION: 1. Left popliteal deep venous thrombosis. Findings similar to previous DVT.
--- NOTE | 2016-11-25 13:24 | P.CNPUL ---
History of Present Illness Consult date: 11/25/16 Reason for consult: dyspnea, pulmonary embolism Chief complaint: Chest discomfort shortness of breath History of present illness: This is a 46-year-old Jomed was a very complex prolonged or protracted medical history as it relates to this problem. The patient states this started sometime before the holidays. At that time he apparently developed some pain in his back and hip from some orthopedic issues. He he also apparently developed a clot in his left leg. He was initially determined to be a superficial blood clot in the leg and the patient was placed on Xarelto. This is unusual because typically for superficial thrombophlebitis we would only treat with such things as anti-inflammatories aspirin and states and warm compresses. Anyway the patient Don subsequently developed some pain in his chest. The patient was in evaluated and found to have anymore extensive deep venous thrombosis thrombosis in the left leg and also was found to have small bilateral pulmonary emboli. Subsequent to being on the factor X a inhibitor, the patient was placed on per DEXA. [place] a thrombin inhibitor. The patient's been seen by Dr. Fofana and vascular surgery also has been seen by Dr. Earl's was his primary doctor and also has been seen by Dr. Moyer and hematology. Apparently this some consideration to the patient getting a Simona filter all although I'm not sure exactly why. In addition, he was told by Dr. Moyer the mill stenciler that he might need to be on blood thinners for the rest of his life. I suspect Dr. Moyer has may be discovered some sort of inherited hypercoagulable state. Abdominal looked at the rest of the chart of his consultation as yet. Anyway the patient is pretty comfortable right now. Currently on IV heparin. Not having any shortness of breath. No chest pain. No other complaints for that matter. His and his daughters in the room with him. He works as a schoolteacher. Because of his chronic hip and back pain, he was sedentary prolonged period of time and that may have been the risk factor for developing a clot in his left leg. Review of Systems Is 12 point review of system is positive for chest pain and some mild shortness of breath both of which have abated. In addition he had some chronic back and hip pain and also some swelling and pain in the left leg. Most of these symptoms have resolved. The rest of the 12 point review of system is negative. Past Medical History Past Medical History: Deep Vein Thrombosis (DVT), Musculoskeletal Disorder Additional Past Medical History / Comment(s): testicular ca, kidney stone, herniated disc History of Any Multi-Drug Resistant Organisms: None Reported Past Surgical History: Hernia Repair Additional Past Surgical History / Comment(s): Left testical removal, right broken thumb, umbilical hernia Past Psychological History: No Psychological Hx Reported Smoking Status: Never smoker Past Alcohol Use History: None Reported Past Drug Use History: None Reported - Past Family History Father Additional Family Medical History / Comment(s): Vericose veins Medications and Allergies Home Medications Medication Instructions Recorded Confirmed Type Dabigatran [Pradaxa] 150 mg PO BID 11/24/16 11/24/16 History Diazepam [Valium] 10 mg PO DAILY PRN 11/24/16 11/24/16 History Gabapentin 600 mg PO TID 11/24/16 11/24/16 History HYDROcodone/APAP 5-325MG [[place] 1 tab PO TID PRN 11/24/16 11/24/16 History 5-325] Ketorolac [Toradol] 10 mg PO BID PRN 11/24/16 11/24/16 History Allergies Allergy/AdvReac Type Severity Reaction Status Date / Time No Known Allergies Allergy Verified 11/24/16 18:29 Physical Exam Osteopathic Statement: *. No significant issues noted on an osteopathic structural exam other than those noted in the History and Physical/Consult. Vitals: Vital Signs Temp Pulse Pulse Resp BP BP Pulse Ox 11/25/16 07:49 78 16 11/25/16 07:48 97.5 F L 78 16 118/70 97 11/25/16 04:00 96.7 F L 75 18 121/79 94 L 11/25/16 00:00 97 F L 77 18 118/71 97 11/24/16 20:20 97 F L 83 16 131/71 94 L 11/24/16 20:00 97.8 F 11/24/16 19:51 73 16 128/77 94 L Intake and Output 11/24/16 11/25/16 11/25/16 22:59 06:59 14:59 Intake Total 64.9 344.982 360 Output Total 800 Balance 64.9 -455.018 360 Intake: IV 64.9 Heparin Sodium,Porcine/ 44.9 D5w Pmx 25,000 unit In Dextrose/Water 1 500ml. bag @ 18 UNITS/KG/HR 44.9 mls/hr IV .Q11H9M [facility] Rx #:[id number] Sodium Chloride 0.9% 1, 20 000 ml @ 20 mls/hr IV . Q24H [facility] Rx#:[id number] Intake, IV Titration 344.982 0 Amount Heparin Sodium,Porcine/ 344.982 0 D5w Pmx 25,000 unit In Dextrose/Water 1 500ml. bag @ 18 UNITS/KG/HR 44.9 mls/hr IV .Q11H9M [facility] Rx #:[id number] Oral 360 Output: Urine 800 Other: Voiding Method Toilet Toilet Urinal Urinal Weight 124.738 kg 126.4 kg No acute distress, oriented 3. HEENT examination is grossly unremarkable. Mucous membranes are moist. No oral lesions. Neck is Supple. Full range of motion. No adenopathy or thyromegaly. Cardiovascular examination reveals regular rhythm rate. S1-S2 normal. No S3- S4 or murmur. Lungs reveal clear breath sounds. No wheezes or rhonchi. Breath sounds are equal bilaterally. No crackles. Abdomen soft bowel sounds are heard. Extremities are intact. Results - Laboratory Findings CBC and BMP: 11/24/16 18:00 11/24/16 18:00 PT/INR, D-dimer PT 11.1 sec (9.0-12.0) 11/24/16 18:00 INR 1.1 (<1.1) 11/24/16 18:00 Abnormal lab findings: Abnormal Labs 11/25/16 00:25 APTT 109.3 H* - Diagnostic Findings Chest x-ray: image reviewed CT scan - chest: image reviewed U/S of Legs: image reviewed (X-rays lab tests and medications are all reviewed.) Assessment and Plan (1) Pulmonary embolism Status: Acute (2) Deep vein thrombosis of lower extremity Status: Acute (3) Superficial vein thrombosis Status: Acute Plan: Plan The patient is doing pretty well. Currently asymptomatic. I told him I did not think he needed a Simona filter. I did mention the fact that I would have is vascular surgeon call me before this is performed. The patient can be placed back on one of the anticoagulants. I don't believe that he is a factor X a inhibitor inhibitor failure. Anyway, the patient is doing reasonably well. I'll see if I can read Dr. Moyer's note because it appears that he may have a significant hypercoagulable state that would need longer anticoagulation and would be expected. The patient was told apparently by someone that he needs lifelong anticoagulation. He will need to see me in follow-up. I do want us repeat computed tomography scan in about 8-10 weeks. Additional recommendations suggestions are forthcoming. Prognosis is guarded. Time with Patient: Greater than 30
--- NOTE | 2016-11-25 20:12 | P.HPIM ---
History of Present Illness 46-year-old male is a return to the hospital after developing PE. Patient been treated this week for of acute deep vein thrombosis is like. Patient was all follow up visit in physician's office developed chest pain and sweating was then referred back to the emergency room for possible pulmonary embolus patient had had two doses of Pradaxa 150mg. patient has a history of testicular cancer and is under the care of Dr. Moyer Review of Systems Cardiovascular: Reports chest pain Past Medical History Past Medical History: Deep Vein Thrombosis (DVT), Musculoskeletal Disorder Additional Past Medical History / Comment(s): testicular ca, kidney stone, herniated disc History of Any Multi-Drug Resistant Organisms: None Reported Past Surgical History: Hernia Repair Additional Past Surgical History / Comment(s): Left testical removal, right broken thumb, umbilical hernia Past Psychological History: No Psychological Hx Reported Smoking Status: Never smoker Past Alcohol Use History: None Reported Past Drug Use History: None Reported - Past Family History Father Additional Family Medical History / Comment(s): Vericose veins Medications and Allergies Home Medications Medication Instructions Recorded Confirmed Type Dabigatran [Pradaxa] 150 mg PO BID 11/24/16 11/24/16 History Diazepam [Valium] 10 mg PO DAILY PRN 11/24/16 11/24/16 History Gabapentin 600 mg PO TID 11/24/16 11/24/16 History HYDROcodone/APAP 5-325MG [[place] 1 tab PO TID PRN 11/24/16 11/24/16 History 5-325] Ketorolac [Toradol] 10 mg PO BID PRN 11/24/16 11/24/16 History Allergies Allergy/AdvReac Type Severity Reaction Status Date / Time No Known Allergies Allergy Verified 11/24/16 18:29 Physical Exam Vitals: Vital Signs Temp Pulse Resp BP Pulse Ox 11/25/16 15:43 97.5 F L 60 16 119/59 97 11/25/16 15:30 16 11/25/16 12:20 82 16 113/79 97 11/25/16 07:49 78 16 11/25/16 07:48 97.5 F L 78 16 118/70 97 11/25/16 04:00 96.7 F L 75 18 121/79 94 L 11/25/16 00:00 97 F L 77 18 118/71 97 11/24/16 20:20 97 F L 83 16 131/71 94 L Intake and Output 11/25/16 11/25/16 11/25/16 06:59 14:59 22:59 Intake Total 344.982 710 120 Output Total 800 300 Balance -455.018 710 -180 Intake: IV 350 Heparin Sodium,Porcine/ 350 D5w Pmx 25,000 unit In Dextrose/Water 1 500ml. bag @ 18 UNITS/KG/HR 44.9 mls/hr IV .Q11H9M [facility] Rx #:[id number] Intake, IV Titration 344.982 0 Amount Heparin Sodium,Porcine/ 344.982 0 D5w Pmx 25,000 unit In Dextrose/Water 1 500ml. bag @ 18 UNITS/KG/HR 44.9 mls/hr IV .Q11H9M [facility] Rx #:[id number] Oral 360 120 Output: Urine 800 300 Other: Voiding Method Toilet Toilet Toilet Urinal Urinal # Voids 2 1 # Bowel Movements 0 Weight 126.4 kg - Constitutional General appearance: mild distress - EENT Eyes: PERRLA Ears: bilateral: normal - Respiratory Respiratory: bilateral: CTA - Cardiovascular Rhythm: regular - Gastrointestinal General gastrointestinal: soft - Integumentary Integumentary: normal - Neurologic Neurologic: CNII-XII intact - Musculoskeletal Musculoskeletal: gait normal - Psychiatric Psychiatric: A&O x's 3, appropriate affect, intact judgment & insight Results CBC & Chem 7: 11/24/16 18:00 11/24/16 18:00 Labs: Abnormal Lab Results - Last 24 Hours (Table) 11/25/16 11/25/16 Range/Units 00:25 15:04 APTT 109.3 H* 63.9 H (22.0-30.0) sec Chest x-ray: report reviewed CT scan - chest: report reviewed Thrombosis Risk Factor Assmnt - Choose All That Apply Each Factor Represents 1 point: Age 41-60 years Each Risk Factor Represents 3 Points: History of DVT/PE Thrombosis Risk Factor Assessment Total Risk Factor Score: 4 Thrombosis Risk Factor Assessment Level: Moderate Risk Assessment and Plan Plan: Assessment pulmonary embolus acute deep vein thrombosis history of left lower leg weakness with the allopathy spinal stenosis history of testicular cancer history of renal nephrolithiasis Plan continue consultation with Dr. Moyer consultation with pulmonology there is consideration of Simona filter
--- NOTE | 2016-11-25 21:46 | P.CONS ---
History of Present Illness - Reason for Consult Consult date: 11/25/16 PE. Failure of anticoagulation - History of Present Illness Mr Hernandez is a pleasant WM, who had presented with back pain since . This was left sided, with radiation down the LLE, with some LLE weakness. He was seen in the ER due to progression of symptoms on 10/23/16. MRI of the L spine showed disc herniation with neuroforaminal impingement, albiet on the right. He was discharged on pain medication, but returned due to persistent pain and weakness in the LLE. Doppler revealed a superficial thrombus in the small saphenous vein. He was discharged on Xarelto, but stopped it soon after so to be able to get epidural injections. He developed increasing swelling and heaviness, and had a doppler in Dr Fofana's office on 11/17/16. This revealed a DVT, and the pt was started back on Xarelto. He claimed good compliance with the same. He , however, continued to have increasing pain and cramps, and came back to the ER on 11/21/16. Repeat doppler showed distal common femoral vein, as well as proximal and distal popliteal DVT. This raised the possibility of Xarelto failure. He was thus started on IV heparin, and seen in consult. As Xarelto failure could not be ruled out, he was discharged on Pradaxa. Of note he had a CTA done on 11/23/16, which was negative for PE. He also had a CT AP done, revealing no suspicious adenopathy or masses. He was again compliant with Pradaxa. However, he started having left sided chest pain, with associated SOB, worse on inspiration. He was seen at Dr Earl' s office, and sent back to the ER. Repeat CTA now showed b/l PE. He was started on IV heparin, and consult placed for further evaluation. He denied any prior h/o VTE, either personally or in the family. There is no h /o recent surgery, or prolonged travel. He did take systemic steroids for his back, but only since late 10/15. He has been more sedentary recently due to his back issues, but not prior to that. 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 He did not require any chemotherapy or radiation based on stage, but was on f/u till at least 10 years, without evidence of recurrence, including on CT AP done on 11/23/15. Review of Systems Constitutional: Reports fatigue Eyes: denies blurred vision, denies pain Ears: deny: decreased hearing, ear discharge, earache, tinnitus Ears, nose, mouth and throat: Denies headache, Denies sore throat Cardiovascular: Reports chest pain, Reports dyspnea on exertion Respiratory: Reports as per HPI, Reports dyspnea Gastrointestinal: Denies abdominal pain, Denies diarrhea, Denies nausea, Denies vomiting Genitourinary: Reports as per HPI Musculoskeletal: Reports low back pain Integumentary: Denies pruritus, Denies rash Neurological: Denies numbness, Denies weakness Psychiatric: Denies anxiety, Denies depression Endocrine: Denies fatigue, Denies weight change Hematologic/Lymphatic: Reports lymphedema, Reports thrombophilia Past Medical History Past Medical History: Deep Vein Thrombosis (DVT), Musculoskeletal Disorder Additional Past Medical History / Comment(s): testicular ca, kidney stone, herniated disc History of Any Multi-Drug Resistant Organisms: None Reported Past Surgical History: Hernia Repair Additional Past Surgical History / Comment(s): Left testical removal, right broken thumb, umbilical hernia Past Psychological History: No Psychological Hx Reported Smoking Status: Never smoker Past Alcohol Use History: None Reported Past Drug Use History: None Reported - Past Family History Father Additional Family Medical History / Comment(s): Vericose veins Medications and Allergies Home Medications Medication Instructions Recorded Confirmed Type Dabigatran [Pradaxa] 150 mg PO BID 11/24/16 11/24/16 History Diazepam [Valium] 10 mg PO DAILY PRN 11/24/16 11/24/16 History Gabapentin 600 mg PO TID 11/24/16 11/24/16 History HYDROcodone/APAP 5-325MG [[place] 1 tab PO TID PRN 11/24/16 11/24/16 History 5-325] Ketorolac [Toradol] 10 mg PO BID PRN 11/24/16 11/24/16 History Allergies Allergy/AdvReac Type Severity Reaction Status Date / Time No Known Allergies Allergy Verified 11/24/16 18:29 Physical Exam Vitals: Vital Signs Temp Pulse Resp BP Pulse Ox 11/25/16 15:43 97.5 F L 60 16 119/59 97 11/25/16 15:30 16 11/25/16 12:20 82 16 113/79 97 11/25/16 07:49 78 16 11/25/16 07:48 97.5 F L 78 16 118/70 97 11/25/16 04:00 96.7 F L 75 18 121/79 94 L 11/25/16 00:00 97 F L 77 18 118/71 97 Intake and Output 11/25/16 11/25/16 11/25/16 06:59 14:59 22:59 Intake Total 344.982 865.018 120 Output Total 800 300 Balance -455.018 865.018 -180 Intake: IV 350 Heparin Sodium,Porcine/ 350 D5w Pmx 25,000 unit In Dextrose/Water 1 500ml. bag @ 18 UNITS/KG/HR 44.9 mls/hr IV .Q11H9M YURIDIA Rx #:[id number] Intake, IV Titration 344.982 155.018 Amount Heparin Sodium,Porcine/ 344.982 155.018 D5w Pmx 25,000 unit In Dextrose/Water 1 500ml. bag @ 18 UNITS/KG/HR 44.9 mls/hr IV .Q11H9M YURIDIA Rx #:[id number] Oral 360 120 Output: Urine 800 300 Other: Voiding Method Toilet Toilet Toilet Urinal Urinal # Voids 2 1 # Bowel Movements 0 Weight 126.4 kg - Constitutional General appearance: no acute distress - EENT Eyes: EOMI, PERRLA ENT: hearing grossly normal, normal oropharynx - Neck Neck: no lymphadenopathy Thyroid: bilateral: normal size - Respiratory Respiratory: bilateral: CTA - Cardiovascular Rhythm: regular Heart sounds: normal: S1, S2 - Gastrointestinal General gastrointestinal: normal bowel sounds, soft - Integumentary Integumentary: normal - Neurologic Neurologic: CNII-XII intact - Musculoskeletal Musculoskeletal: strength equal bilaterally - Psychiatric Psychiatric: A&O x's 3 Results CBC & Chem 7: 11/24/16 18:00 11/24/16 18:00 Labs: Abnormal Lab Results - Last 24 Hours (Table) 11/25/16 11/25/16 Range/Units 00:25 15:04 APTT 109.3 H* 63.9 H (22.0-30.0) sec CT scan - abdomen: report reviewed CT scan - chest: report reviewed CT scan - pelvis: report reviewed Venous US: report reviewed Assessment and Plan (1) Pulmonary embolism Narrative/Plan: The pt is now presenting with new b/l PE, despite good compliance with Pradaxa. His CTA just 2 days ago was negative. Thus this likely represents a failure of Pradaxa. In addition, there is also the possibility of progression on Xarelto, of his DVT. - Agree with IV heparin in the current setting - Based on the clinical picture, the pt appears to be at high risk of recurrence , especially in the acute setting. Therefore in my opinion, it is reasonable to consider an IVC filter placement. The limitations and complications of the filter were discussed in detail, as was the rationale for recommending the same despite those. - The case was extensively discussed with Vascular surgery, and the Pulmonary Service, who are on consult. The risks and benefits of retrievable vs Simona filters were also discussed. I will discuss the case with Hematologists at the [facility] and [facility]. Final recommendations will be made subsequently. In any case, I would not recommend stopping the heparin for a procedure until at least 24-36 hrs have elapsed. The above was d/w the pt I will initiate preliminary w/u for a hypercoagulable state, with testing for APL antibodies. If positive, high dose coumadin can be an option Status: Acute (2) Deep vein thrombosis of lower extremity Narrative/Plan: Repeat dopplers to check for any progression Status: Acute
[2016-11-26] MEDS: HYDROcodone/APAP 5-325MG 1 EACH TAB PO PRN ×2 (06:45→16:40)
[2016-11-26] MEDS: GABAPENTIN 300 MG CAP PO SCH ×2 (07:47→16:40)
--- NOTE | 2016-11-26 12:01 | P.PN ---
Subjective Progress note dated 11/26/2016 Very pleasant 46-year-old man who presents to the hospital with left-sided DVT and pulmonary most him on CT angiogram. I did have a chance to speak to him today and evaluate him again today. I also spoke to his product ambassador as well as his primary doctor. I do not feel strongly about a Simona filter in this gentleman. I don't believe that he's been adequately anticoagulated. It does not appear that the DVT has progressed based on the Doppler studies of November 21. I did express my feelings about this to both the primary physician and product ambassador. I also expressed this to the patient. I did say to all 3 that if the patient does agree to have a filter placed, a should be retrievable filter. The patient may need to be transferred elsewhere for that. In addition, I did mention to the patient that if he is confused as to what to do we can certainly offer him a second opinion at a different institution. That would not be unreasonable. He will give this all a lot of consideration. Objective - Vital Signs Vital signs: Vital Signs Temp 96.9 F L 11/26/16 07:45 Pulse 68 11/26/16 11:44 Resp 16 11/26/16 11:44 BP 122/69 11/26/16 11:44 Pulse Ox 97 11/26/16 11:44 Intake & Output 11/25/16 11/26/16 11/26/16 18:59 06:59 18:59 Intake Total 985.018 60 996 Output Total 300 Balance 685.018 60 996 Weight 127.4 kg Intake: IV 350 256 Heparin Sodium,Porcine/ 350 176 D5w Pmx 25,000 unit In Dextrose/Water 1 500ml. bag @ 18 UNITS/KG/HR 44.9 mls/hr IV .Q11H9M YURIDIA Rx #:[id number] Sodium Chloride 0.9% 1, 80 000 ml @ 20 mls/hr IV . Q24H STA Rx#:[id number] Intake, IV Titration 155.018 500 Amount Heparin Sodium,Porcine/ 155.018 500 D5w Pmx 25,000 unit In Dextrose/Water 1 500ml. bag @ 18 UNITS/KG/HR 44.9 mls/hr IV .Q11H9M YURIDIA Rx #:[id number] Oral 480 60 240 Output: Urine 300 Other: Voiding Method Toilet Toilet Toilet Urinal # Voids 1 2 0 # Bowel Movements 0 1 0 - Exam No acute distress, oriented 3. HEENT examination is grossly unremarkable. Supple. Full range of motion. Cardiovascular examination reveals regular rhythm rate. S1-S2 normal. Lungs are clear breath sounds equal. Abdomen soft. Extremities are intact. - Labs CBC & Chem 7: 11/24/16 18:00 11/24/16 18:00 Labs: Abnormal Lab Results - Last 24 Hours (Table) 11/25/16 11/26/16 Range/Units 15:04 05:36 APTT 63.9 H 99.3 H* (22.0-30.0) sec Assessment and Plan (1) Pulmonary embolism Status: Acute (2) Deep vein thrombosis of lower extremity Status: Acute Plan: Plan The patient is doing pretty well. Currently asymptomatic. I told him I did not think he needed a Simona filter. I did mention the fact that I would have is vascular surgeon call me before this is performed. The patient can be placed back on one of the anticoagulants. I don't believe that he is a factor X a inhibitor inhibitor failure. Anyway, the patient is doing reasonably well. I'll see if I can read Dr. Moyer's note because it appears that he may have a significant hypercoagulable state that would need longer anticoagulation and would be expected. The patient was told apparently by someone that he needs lifelong anticoagulation. He will need to see me in follow-up. I do want us repeat computed tomography scan in about 8-10 weeks. Additional recommendations suggestions are forthcoming. Prognosis is guarded. Plan dated 11/26/2016 The patient will give all of this additional consideration. He'll also speak to his primary doctor. He may choose to be evaluated a different institution. I did tell him again that I don't feel like he needs a filter placed but if he should agree to have a filter placed, he should be retrievable filter. It may not be able to be done here as a vascular surgeon as I don't believe offer that as a op option. In addition, he will need follow-up in my office. I do recommend a follow-up computed tomography scan in 8-10 weeks to make sure the clot has dissipated. He should have a hypercoagulable workup. I also contacted time to call his primary physician last night and also his product ambassador. I gave him a lot of information. He may wish a different opinion elsewhere. I asked them to speak to his primary physician about this. Additional recommendations suggestions are forthcoming. For the time being he is on IV heparin. Time with Patient: Greater than 30
--- NOTE | 2016-11-26 15:40 | CONS ---
DATE OF CONSULTATION: This is a 46-year-old pleasant gentleman who came to my office dated 11/17/2016 with a history of swelling of the left leg. Patient was diagnosed superficial thrombophlebitis and was put on Xarelto. Patient also has a history of lumbar disc. For that patient is having epidural. We did an ultrasound in the office and found to have a clot in the popliteal vein and patient was started on Xarelto and patient went home. Patient got readmitted on 11/21/16 and repeat Doppler showed distal femoral vein and popliteal vein DVT. Patient was put on Eliquis and patient was sent home. He came with chest pain. CTA done on 11/23/2016, which showed negative. The recent CT showed on 11/23, PE. History of deep vein thromboses, musculoskeletal disorder, history of disc problem. On examination, patient was seen in his room. His vital signs are stable. NECK: Supple. Trachea central. Chest is clear to auscultation. ABDOMEN: Soft. Femoral pulses are palpable. Patient has a mild leg discomfort. 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 We will discuss with Dr. Moyer. If patient is a candidate for filter, we will place a [place] filter. We have discussed in detail and if patient needs, we will arrange. Follow with you.
[2016-11-26] MEDS: HEPARIN SODIUM,PORCINE/D5W PMX 25,000 UNIT in DEXTROSE/WATER 1 500ML.BAG IV SCH (15:57)
--- NOTE | 2016-11-26 16:31 | P.DS ---
Providers Date of admission: 11/24/16 19:16 Expected date of discharge: 11/26/16 Attending physician: Adan Earl Consults: 11/25/16 11:05 Consult Physician Urgent Consulting Provider: Stanley Todd Consult Reason/Comments: pulmonary embolism Do you want consulting provider notified?: Yes 11/25/16 13:35 Consult Physician Routine Consulting Provider: Rashel Fofana Consult Reason/Comments: IVC filter placement Do you want consulting provider notified?: Yes Primary care physician: Adan Earl Hospital Course: This is a 46-year-old gentleman with history of left lower extremity pain that was noted around [facility]. Patient does have a history of lumbar radiculopathy with a documented disc herniation or neural foraminal impingement. Patient thereafter had a Doppler study was noted to have a superficial thrombus in the left saphenous vein. Patient was started on xarelto to however was stopped as patient required epidural pain medication injections. The patient thereafter had was having increased swelling and tenderness in the left lower extremity. A repeat scan was done which showed a DVT. Patient was started back on xarelto at that time. Patient apparently was having significant pain while taken several toe hence a repeat Doppler study was done and was noted to have extension of the DVT from the common popliteal vein all the way to common femoral vein on the left side. With xarelto faillure in mind, patient was thereafter started on pradaxa which patient states that he is compliant with. A week after that patient noted some difficulty breathing and atypical chest pain. A CT angiogram was noted to have a pulmonary embolism on the right subsegmental pulmonary arteries. Patient does have a history of testicular cancer multiple years ago. Patient has no significant risk factors on the [place] tri[place]. Hypercoagulability workup has not been done. Patient was seen by [facility] a recommendation was requested from [facility] patient will be transferred to the other facility for placement of a retrievable IVC filter. Patient will be currently started on IV heparin patient may benefit from being on Lovenox long-term as patient failed on 1080 betters at this time. On day of discharge lungs good air entry clear to auscultation no rhonchi or wheezing Heart regular rate and rhythm no murmurs appreciated Abdomen is soft nontender no organomegaly Lower extremities is a compression stocking no pain to palpation however there is some neuropathy reported there. Neurologically moves all 4 extremities and nurse to till 12 grossly intact Discharge diagnosis Acute pulmonary embolism failure on the previous 10 A inhibitor #2 obesity #3 lumbar disc herniation #4 radiculopathy with chronic lower back pain and neuropathy #5 testicular cancer Triaged to [facility] when accepted. This is for retrievable IVC filter placement. Patient Condition at Discharge: Serious Plan - Discharge Summary Discharge Medication List Diazepam [Valium] 10 mg PO DAILY PRN 11/24/16 [History] Gabapentin 600 mg PO TID 11/24/16 [History] HYDROcodone/APAP 5-325MG [[place] 5-325] 1 tab PO TID PRN 11/24/16 [History] Ketorolac [Toradol] 10 mg PO BID PRN 11/24/16 [History] Follow up Appointment(s)/Referral(s): Adan Earl MD [Primary Care Provider] - 1-2 days Discharge Disposition: OTHER INSTITUTION NOT DEFINED
[2016-11-26 16:43] VITALS: BP 114/65; PULSE 70; RESP 17; TEMP 97.1
--- NOTE | 2016-11-26 17:10 | P.PN ---
Subjective The patient denies any recurrence of chest pain. No history of any nausea, vomiting, or obvious bleeding. He still has some left leg fullness and discomfort which is fairly moderate. Objective - Vital Signs Vital signs: Vital Signs Temp 97.1 F L 11/26/16 16:00 Pulse 70 11/26/16 16:00 Resp 17 11/26/16 16:00 BP 114/65 11/26/16 16:00 Pulse Ox 98 11/26/16 16:00 Intake & Output 11/25/16 11/26/16 11/26/16 18:59 06:59 18:59 Intake Total 985.929 91 7819 Output Total 300 Balance 685.866 21 1564 Weight 127.4 kg Intake: IV 350 256 Heparin Sodium,Porcine/ 350 176 D5w Pmx 25,000 unit In Dextrose/Water 1 500ml. bag @ 18 UNITS/KG/HR 44.9 mls/hr IV .Q11H9M YURIDIA Rx #:[id number] Sodium Chloride 0.9% 1, 80 000 ml @ 20 mls/hr IV . Q24H STA Rx#:[id number] Intake, IV Titration 155.018 500 Amount Heparin Sodium,Porcine/ 155.018 500 D5w Pmx 25,000 unit In Dextrose/Water 1 500ml. bag @ 18 UNITS/KG/HR 44.9 mls/hr IV .Q11H9M YURIDIA Rx #:[id number] Oral 480 60 480 Output: Urine 300 Other: Voiding Method Toilet Toilet Toilet Urinal # Voids 1 2 1 # Bowel Movements 0 1 0 - Constitutional General appearance: Present: no acute distress - EENT Eyes: Present: PERRLA - Respiratory Respiratory: bilateral: CTA - Cardiovascular Rhythm: regular Heart sounds: normal: S1, S2 - Gastrointestinal General gastrointestinal: Present: normal bowel sounds, soft - Integumentary Integumentary: Present: normal - Neurologic Neurologic: Present: CNII-XII intact - Musculoskeletal Musculoskeletal: Present: strength equal bilaterally - Labs CBC & Chem 7: 11/24/16 18:00 11/24/16 18:00 Labs: Abnormal Lab Results - Last 24 Hours (Table) 11/26/16 11/26/16 Range/Units 05:36 15:44 APTT 99.3 H* 54.6 H (22.0-30.0) sec Assessment and Plan (1) Pulmonary embolism Narrative/Plan: The patient continues on IV heparin. Symptomatically he is feeling well at this time with no recurrence of chest pain or shortness of breath. - Other case was extensively discussed with hematology at [facility], and also the [facility]. Based on the clinical history, and the patient's good compliance, it was felt that there definitely is suspicion for failure of anticoagulation. Therefore in the acute setting, there was consensus that placement of a filter is reasonable. Retrievable filter was recommended by both centers, mainly based on the data that efficacy of the filters in the long-term is suspect, along with the increased risk of complications with time. The above was also discussed with the vascular surgery. Since that procedure is not available here, transfer was recommended. The patient will be transferred to [facility]. The case was discussed in detail with them. The patient will obviously need to continue on anticoagulation. Based on my consultations as noted above, it was felt that the full dose heparin with the Q 12 dosing, with transition over to Coumadin, possibly with the higher target INR , would be the therapy of choice, at least in the near term. The patient has had a very aggressive presentation. In addition his clots and essentially unprovoked. He did have some limitation of activity due to back pain, but actually continued to work every day, and even student success coach softball. He does not appear to have any chronic risk factors. For unprovoked pulmonary emboli, lifelong antibiotic regulation is recommended both by ERMELINDA and the ACC P guidelines, as long as the patient tolerates treatment well. Therefore I would recommend lifelong anticoagulation, based on his clinical presentation, regardless of the results of the hypercoagulable workup. He will obviously get a second opinion in this regard at [facility]. Status: Acute (2) Deep vein thrombosis of lower extremity Narrative/Plan: Symptomatically the patient is fairly stable. The repeat Doppler done during this admission did not show any progression compared to the one earlier this week. I did discuss the case with Dr. Fofana, who compared the Doppler done at his office last week, and the one done here earlier this week personally, and confirm that there did appear to be progression into the femoral vein. Management decisions as noted above. In addition he will continue to use his compression stockings Status: Acute
[2016-11-29 02:59] LABS: Cardiolipin Ab IgG <9.0 GPL (<15); Cardiolipin Ab IgM 9.4 MPL (<12.5)
[2016-11-29 09:34] LABS: Mis test requested (Blood) B2GAB
[2016-11-29 12:05] LABS: Hexagonal Phase Neutralization Negative (Negative)
== END 2016-11-26 19:47 | disposition short-term general hospital (02) | DRG 176 ==
LOC: EC 17:19 → 6SEL 19:16
PROVIDERS: ADMIT Family Medicine; ATTEND Family Medicine
DX: I26.99 Other pulmonary embolism without acute cor pulmonale (principal); G62.9 Polyneuropathy, unspecified; I82.432 Acute embolism and thrombosis of left popliteal vein; M51.16 Intervertebral disc disorders with radiculopathy, lumbar region; M48.00 Spinal stenosis, site unspecified; R53.1 Weakness; G89.29 Other chronic pain; Z87.442 Personal history of urinary calculi; Z85.47 Personal history of malignant neoplasm of testis; Z79.01 Long term (current) use of anticoagulants; Z79.891 Long term (current) use of opiate analgesic; Z79.899 Other long term (current) drug therapy; Z87.81 Personal history of (healed) traumatic fracture; Z90.79 Acquired absence of other genital organ(s)
CPT/HCPCS: 36415; 71275; 80053; 82105; 82550; 82553; 82565; 83615; 83735; 84484; 84520; 84702; 85025; 85598; 85610; 85613; 85730; 85732; 86146; 86147; 93005; 93970; 96365; 96376; 99291

== ENCOUNTER → 2016-12-30 | Outpatient (CLI) | payer OTHER ==
--- NOTE | 2017-01-04 10:20 | ECHOF ---
Referral Reason:R03.0 Elev BP w/o dx of hypertension MEASUREMENTS -------- HEIGHT: 193.0 cm WEIGHT: 127.0 kg BP: 115/55 RVIDd: 3.5 cm (< 3.3) IVSd: 1.1 cm (0.6 - 1.1) LVIDd: 4.7 cm (3.9 - 5.3) LVPWd: 1.2 cm (0.6 - 1.1) IVSs: 1.7 cm LVIDs: 3.3 cm LVPWs: 1.7 cm LA Diam: 3.7 cm (2.7 - 3.8) LAESV Index (A-L): 17.75 ml/m Ao Diam: 4.1 cm (2.0 - 3.7) AV Cusp: 2.8 cm (1.5 - 2.6) MV EXCURSION: 19.089 mm (> 18.000) MV EF SLOPE: 67 mm/s (70 - 150) EPSS: 0.4 cm MV E Law: 0.78 m/s MV DecT: 293 ms MV A Law: 0.65 m/s MV E/A Ratio: 1.19 FINDINGS -------- Sinus rhythm. This was a technically good study. The left ventricular size is normal. There is borderline concentric left ventricular hypertrophy. Overall left ventricular systolic function is normal with, an EF between 60 - 65 %. The right ventricle is mildly enlarged. Normal LA size by volume 22+/-6 ml/m2. The right atrium is normal in size. The aortic valve is trileaflet and appears structurally normal. Normal appearing mitral valve. No mitral regurgitation. No regurgitation noted Trace/mild (physiologic) pulmonic regurgitation. The aortic root is dilated measuring 4.1cm. IVC Not well visulized. There is no pericardial effusion. CONCLUSIONS -------- 1. Sinus rhythm. 2. Normal appearing mitral valve. 3. No mitral regurgitation. 4. No regurgitation noted 5. Trace/mild (physiologic) pulmonic regurgitation. 6. The aortic root is dilated measuring 4.1cm. 7. IVC Not well visulized. 8. There is no pericardial effusion. 9. This was a technically good study. 10. The left ventricular size is normal. 11. There is borderline concentric left ventricular hypertrophy. 12. Overall left ventricular systolic function is normal with, an EF between 60 - 65 %. 13. The right ventricle is mildly enlarged. 14. Normal LA size by volume 22+/-6 ml/m2. 15. The right atrium is normal in size. 16. The aortic valve is trileaflet and appears structurally normal. PST SUPERVISOR: Pam Farmer RDCS
== END ==
LOC: RADECHMAIN 14:38
PROVIDERS: ATTEND Family Medicine
DX: I37.1 Nonrheumatic pulmonary valve insufficiency (principal)
CPT/HCPCS: 93306

== ENCOUNTER → 2017-01-10 | Outpatient (CLI) | payer OTHER ==
--- NOTE | 2017-01-11 08:14 | CT ---
CT CHEST FOR PULMONARY EMBOLISM. EXAMINATION TYPE: CT angio chest DATE OF EXAM: 01/10/2017 5:03 PM INDICATION: PT STATES OF FOLLOW UP FOR PE. CT DLP: 712.0 mGycm, Automated exposure control for dose reduction was used. CONTRAST: Patient injected with 90 mL of Omnipaque 300. COMPARISON: 11/24/2016 TECHNIQUE: CT of the chest is performed on a spiral scan at 2 mm thick sections. Study is performed with intravenous contrast timed for evaluation for pulmonary embolism. This will limit additional po rtions of the evaluation. 3-D MIP images reconstructed by the technologist are reviewed on the compu ter in the coronal and sagittal planes. FINDINGS: No persistent filling defects are evident to suggest an acute pulmonary embolism. Contrast opacificat ion is suboptimal greater contrast within the arterial system in the pulmonary arteries. Previous rig ht lower lobe pulmonary emboli are not identified. There is a suggestion there may be some chronic em boli at the previous pulmonary emboli. Example images of series 5 image 78. No obstruction is evident . No mediastinal or hilar adenopathy enlarged by CT criteria is evident. The ascending aorta diameter at the level of the main pulmonary artery is 3.4 cm. The main pulmonary artery diameter at the bifur cation is 2.5 cm. Lung windows are clear. There is a small hiatal hernia present. Limited CT section through the upper abdomen are unremarkable. IMPRESSIONS: 1. Some residual nonobstructing pulmonary emboli at the previous pulmonary emboli may remain present. No acute pulmonary emboli are evident at this time.
== END | disposition home or self-care (01) ==
LOC: RADCTMAIN 16:35
PROVIDERS: ATTEND Family Medicine
DX: I27.82 Chronic pulmonary embolism (principal)
CPT/HCPCS: 71275; Q9967

== ENCOUNTER 2018-09-15 08:17 | Day surgery (SDC) | payer BC, OTHER ==
[2018-09-13 08:56] VITALS: BMI 30.7
[~2018-09-15 08:17] MED LIST: LACTATED RINGERS 1,000 ML IV SCH; LIDOCAINE 1% 20 ML VIAL (10MG/ML) FOR IV START INTRADERMA PRN
[2018-09-15 08:40] VITALS: RESP 16; TEMP 97.8
[2018-09-15] MEDS ORDERED: LIDOCAINE 1% INJ 10MG/ML (20 ML MDV) ONE (09:05)
[2018-09-15] MEDS ORDERED: PROPOFOL 10 MG/ML 20 ML VIAL IV ONE (09:05)
[2018-09-15] MEDS ORDERED: GLYCOPYRROLATE 0.2 MG/ML 2 ML VIAL ONE (09:05)
--- NOTE | 2018-09-15 09:08 | P.GSHP ---
History of Present Illness H&P Date: 09/15/18 Chief Complaint: Family history of colon Cancer This is a 48-year-old male consider colonoscopy. Patient is a strong family history of colonic cancer. Last colonoscopy was 4 years ago. Past Medical History Past Medical History: Cancer, Deep Vein Thrombosis (DVT), Musculoskeletal Disorder, Pulmonary Embolus (PE) Additional Past Medical History / Comment(s): testicular ca, kidney stone, hx herniated disc, History of Any Multi-Drug Resistant Organisms: None Reported Past Surgical History: Hernia Repair Additional Past Surgical History / Comment(s): Left testical removal, right broken thumb, umbilical hernia Past Anesthesia/Blood Transfusion Reactions: Postoperative Nausea & Vomiting ( PONV) Smoking Status: Never smoker - Past Family History Father Additional Family Medical History / Comment(s): Varicose veins Mother Family Medical History: Cancer Additional Family Medical History / Comment(s): colon Medications and Allergies Home Medications Medication Instructions Recorded Confirmed Type No Known Home Medications 09/13/18 09/15/18 History Allergies Allergy/AdvReac Type Severity Reaction Status Date / Time No Known Allergies Allergy Verified 09/15/18 08:37 Surgical - Exam Vital Signs Temp Pulse Resp BP Pulse Ox 97.8 F 53 L 16 114/64 96 09/15/18 08:36 09/15/18 08:36 09/15/18 08:36 09/15/18 08:36 09/15/18 08:36 - General well developed, no distress - Eyes PERRL - ENT normal pinna - Neck no masses - Respiratory normal expansion - Cardiovascular Rhythm: regular - Abdomen Abdomen: soft, non tender Assessment and Plan Assessment: We'll perform colonoscopy.
--- NOTE | 2018-09-15 09:24 | P.OP ---
Date of Procedure: 09/15/18 Preoperative Diagnosis: Family history of colon cancer Postoperative Diagnosis: Rectal polyp Procedure(s) Performed: Colonoscopy Anesthesia: MAC Surgeon: Tod Tello Pathology: other (Rectal polyp) Condition: stable Disposition: PACU Description of Procedure: The patient's placed on the endoscopy table in the lateral position. He received IV sedation. Digital rectal exam was performed which revealed no abnormalities. The prostate was symmetric without nodules. The flexible colonoscope was then placed patient anus and passed throughout the entire colon. The ileocecal valve was visualized.. The cecum, ascending and transverse colon appeared normal. The descending and sigmoid colon appeared normal. Scope was then brought back and the rectum and a small sessile polyp was seen in this was removed with the cold forcep. Scope was then withdrawn for patient.
[2018-09-15 09:43] VITALS: BP 109/71; PULSE 49
== END 2018-09-15 10:16 | disposition home or self-care (01) ==
LOC: ORWHC2ENDO 08:17
PROVIDERS: ATTEND Surgery
DX: Z12.11 Encounter for screening for malignant neoplasm of colon (principal); D12.8 Benign neoplasm of rectum; Z80.0 Family history of malignant neoplasm of digestive organs; Z86.711 Personal history of pulmonary embolism; Z86.718 Personal history of other venous thrombosis and embolism; Z87.442 Personal history of urinary calculi; Z85.47 Personal history of malignant neoplasm of testis
CPT/HCPCS: 88305; 45380; J2001; J2704

== ENCOUNTER 2018-10-03 08:41 | Day surgery (SDC) | payer BC ==
[2018-09-28 15:12] VITALS: BMI 29.9
[~2018-10-03 08:41] MED LIST changes: +DEXAMETHASONE SOD PHOSPHATE 10 MG/ML 1 ML VIAL IV ONE; +HYDROmorphone 0.5 MG/0.5 ML SYRINGE IVP PRN; +ONDANSETRON 4 MG/2 ML VIAL IVP ONE; +SCOPOLAMINE 1.5MG/72HR PATCH TRANSDERM ONE
[2018-10-03 09:01] VITALS: RESP 16; TEMP 98.3
[2018-10-03] MEDS ORDERED: LIDOCAINE 1% INJ 10MG/ML (20 ML MDV) ONE (09:23)
[2018-10-03] MEDS ORDERED: PROPOFOL 10 MG/ML 20 ML VIAL IV ONE (09:23)
--- NOTE | 2018-10-03 09:36 | P.GSHP ---
History of Present Illness H&P Date: 10/03/18 Chief Complaint: GERD This a 48-year-old male with complaints of GERD. Patient presents today for EGD. Past Medical History Past Medical History: Cancer, Deep Vein Thrombosis (DVT), Musculoskeletal Disorder, Pulmonary Embolus (PE) Additional Past Medical History / Comment(s): testicular ca-no radiation or chemo, kidney stone, hx herniated disc, History of Any Multi-Drug Resistant Organisms: None Reported Past Surgical History: Hernia Repair Additional Past Surgical History / Comment(s): Left testical removal, right broken thumb, umbilical hernia Past Anesthesia/Blood Transfusion Reactions: Postoperative Nausea & Vomiting ( PONV) Smoking Status: Never smoker - Past Family History Father Additional Family Medical History / Comment(s): Varicose veins Mother Family Medical History: Cancer Additional Family Medical History / Comment(s): colon Medications and Allergies Home Medications Medication Instructions Recorded Confirmed Type No Known Home Medications 09/13/18 10/03/18 History Allergies Allergy/AdvReac Type Severity Reaction Status Date / Time No Known Allergies Allergy Verified 10/03/18 09:09 Surgical - Exam Vital Signs Temp Pulse Resp BP Pulse Ox 98.3 F 86 16 117/70 98 10/03/18 09:00 10/03/18 09:00 10/03/18 09:00 10/03/18 09:00 10/03/18 09:00 - General well developed, no distress - Eyes PERRL - ENT normal pinna - Neck no masses - Respiratory normal expansion - Cardiovascular Rhythm: regular - Abdomen Abdomen: soft, non tender Assessment and Plan Assessment: GERD. We'll perform EGD.
--- NOTE | 2018-10-03 09:38 | P.OP ---
Date of Procedure: 10/03/18 Preoperative Diagnosis: GERD Postoperative Diagnosis: Antral gastritis Hiatal hernia Esophagitis Procedure(s) Performed: EGD Anesthesia: MAC Surgeon: Tod Tello Pathology: other (Antral, esophagus) Condition: stable Disposition: PACU Description of Procedure: The patient's placed on the endoscopy table in the lateral position. He received IV sedation. Gastric was placed oropharynx and passed into the esophagus and into the stomach. The scope was then placed through the pylorus. First and second portion of the duodenum appeared normal. The scope was then brought back and the antrum and this appeared mildly inflamed. Biopsies performed. The scope was then retroflexed and remainder of the stomach appeared normal. There was a moderate size hiatal hernia. The GE junction was at 38 cm. The distal esophagus appeared mildly inflamed a biopsies performed. The proximal esophagus appeared normal. Scope was withdrawn for patient.
[2018-10-03 10:01] VITALS: BP 110/66; PULSE 46
== END 2018-10-03 10:19 | disposition home or self-care (01) ==
LOC: ORWHC2ENDO 08:41
PROVIDERS: ATTEND Surgery
DX: K31.9 Disease of stomach and duodenum, unspecified (principal); K21.0 Gastro-esophageal reflux disease with esophagitis; K44.9 Diaphragmatic hernia without obstruction or gangrene; K29.60 Other gastritis without bleeding; Z86.718 Personal history of other venous thrombosis and embolism; Z86.711 Personal history of pulmonary embolism; Z85.47 Personal history of malignant neoplasm of testis; Z80.0 Family history of malignant neoplasm of digestive organs
CPT/HCPCS: 88305; 43239; J2001; J2704

== ENCOUNTER → 2018-10-26 | Outpatient (CLI) | payer BC ==
--- NOTE | 2018-10-26 11:28 | US ---
EXAMINATION TYPE: US venous doppler duplex LE DATE OF EXAM: 10/26/2018 10:55 AM COMPARISON: 10/2016 CLINICAL HISTORY: R60.0 edema lower extremity. prior left popliteal DVT 10/2016 SIDE PERFORMED: bacilio TECHNIQUE: The lower extremity deep venous system is examined utilizing real time linear array sonog bela with graded compression, doppler sonography and color-flow sonography. VESSELS IMAGED: External Iliac Vein (EIV) Common Femoral Vein Deep Femoral Vein Greater Saphenous Vein * Femoral Vein Popliteal Vein Small Saphenous Vein * Proximal Calf Veins (* superficial vessels) Right Leg: Negative for DVT Left Leg: Negative for DVT IMPRESSION: No evidence for DVT.
== END | disposition home or self-care (01) ==
LOC: RADUSWWP 10:14
PROVIDERS: ATTEND Family Medicine
DX: R60.0 Localized edema (principal)
CPT/HCPCS: 93970

== ENCOUNTER 2021-11-19 08:41 | Day surgery (SDC) | payer BC ==
[2021-11-16 09:53] VITALS: BMI 33.6
[~2021-11-19 08:41] MED LIST changes: -DEXAMETHASONE SOD PHOSPHATE 10 MG/ML 1 ML VIAL IV ONE; -HYDROmorphone 0.5 MG/0.5 ML SYRINGE IVP PRN; +LIDOCAINE 1% (10MG/ML) FOR IV START INTRADERMA PRN; -LIDOCAINE 1% 20 ML VIAL (10MG/ML) FOR IV START INTRADERMA PRN; -ONDANSETRON 4 MG/2 ML VIAL IVP ONE; -SCOPOLAMINE 1.5MG/72HR PATCH TRANSDERM ONE
[2021-11-19 09:27] VITALS: TEMP 97.1
[2021-11-19] MEDS ORDERED: LIDOCAINE 1% INJ 10MG/ML (20 ML MDV) ONE (09:51)
[2021-11-19] MEDS ORDERED: PROPOFOL 10 MG/ML 20 ML VIAL IV ONE (09:51)
--- NOTE | 2021-11-19 09:54 | P.GSHP ---
History of Present Illness H&P Date: 11/19/21 Chief Complaint: History of colon polyps Is a 51-year-old male who presents today for colonoscopy. Patient has previous history of colon polyps and family history of colon cancer. Past Medical History Past Medical History: Cancer, Deep Vein Thrombosis (DVT), Pulmonary Embolus (PE) Additional Past Medical History / Comment(s): testicular ca-no radiation or chemo, kidney stone, hx herniated disc History of Any Multi-Drug Resistant Organisms: None Reported Past Surgical History: Hernia Repair, Orthopedic Surgery Additional Past Surgical History / Comment(s): Left testicle removal Past Anesthesia/Blood Transfusion Reactions: Postoperative Nausea & Vomiting (PONV) Past Psychological History: No Psychological Hx Reported Smoking Status: Never smoker Past Alcohol Use History: None Reported Past Drug Use History: None Reported - Past Family History Father Additional Family Medical History / Comment(s): Varicose veins Mother Family Medical History: Cancer Additional Family Medical History / Comment(s): colon Medications and Allergies Home Medications Medication Instructions Recorded Confirmed Type No Known Home Medications 09/13/18 11/19/21 History Allergies Allergy/AdvReac Type Severity Reaction Status Date / Time No Known Allergies Allergy Verified 11/19/21 09:17 Surgical - Exam Vital Signs Temp Pulse Resp BP Pulse Ox 97.1 F L 62 18 110/66 96 11/19/21 09:25 11/19/21 09:25 11/19/21 09:25 11/19/21 09:25 11/19/21 09:25 - General well developed, well nourished, no distress - Eyes PERRL - ENT normal pinna - Neck no masses - Respiratory normal expansion - Cardiovascular Rhythm: regular - Abdomen Abdomen: soft, non tender Assessment and Plan Assessment: History of colon polyps. We'll perform Colonoscopy
--- NOTE | 2021-11-19 10:09 | P.OP ---
Date of Procedure: 11/19/21 Preoperative Diagnosis: History of colon polyps Postoperative Diagnosis: Colonoscopy Procedure(s) Performed: Colonoscopy Anesthesia: MAC Surgeon: Tod Tello Pathology: none sent Condition: stable Disposition: PACU Description of Procedure: PROCEDURE: The patient was placed on the endoscopy table in the lateral position. Digital rectal examination was performed which revealed no abnormalities. The prostate was symmetrical without nodules. Flexible colonoscope was then placed in the patient's anus and passed throughout the entire colon. The ileocecal valve was visualized. The cecum, ascending, transverse, descending and sigmoid colon were normal. The rectum was normal as well. There were no masses, polyps or diverticula noted in the entire colon. SUMMARY OF FINDINGS: Normal colonoscopy.
[2021-11-19 10:32] VITALS: BP 122/82; PULSE 61; RESP 18
== END 2021-11-19 10:35 | disposition home or self-care (01) ==
LOC: ORWHC2ENDO 08:41
PROVIDERS: ATTEND Surgery
DX: Z12.11 Encounter for screening for malignant neoplasm of colon (principal); Z86.010 Personal history of colon polyps; Z80.0 Family history of malignant neoplasm of digestive organs; Z86.718 Personal history of other venous thrombosis and embolism; Z86.711 Personal history of pulmonary embolism; Z85.47 Personal history of malignant neoplasm of testis; Z82.49 Family history of ischemic heart disease and other diseases of the circulatory system
CPT/HCPCS: J2001; J2704; G0105; 45378

== ENCOUNTER → 2021-12-02 | Outpatient (CLI) | payer BC ==
--- NOTE | 2021-12-02 15:48 | CONS ---
CONSULTATION DATE OF SERVICE: 12/02/2021 This 51-year-old gentleman has been evaluated in Sleep Center for possible obstructive sleep apnea-hypopnea syndrome. HISTORY OF PRESENT ILLNESS/SLEEP-WAKE EVALUATION: Patient's usual sleep schedule is from 10 p.m. to 5 a.m. on weekdays and from 10 p.m. to 6 a.m. on weekends. No problems with falling asleep, although he has a TV set in the bedroom. He usually sleeps on the side position. According to his , he has loud snoring and witnessed episodes of stopped breathing during sleep. He wakes up from sleep up to 4 times with one episode of nocturia. No history of hypnagogic hallucinations, sleep paralysis or cataplexy. [place] Sleepiness Scale is significantly increased at 14, which indicates sleepiness. PAST MEDICAL HISTORY: Positive for deep venous thrombosis with pulmonary embolism bilaterally in 2018, testicular cancer. PAST SURGICAL HISTORY: Surgery for treatment of testicular cancer, right arm surgery. MEDICATIONS: None. SOCIAL HISTORY: Negative for smoking. Alcohol consumption: Occasional beer. FAMILY HISTORY: Snoring, varicose veins. REVIEW OF SYSTEMS: Multiple awakenings from sleep, sleepiness during the day. No fevers. No double vision. No recent chest pain. No shortness of breath. No abdominal pain. No bleeding episodes. No blood in the urine. No seizure episodes. PHYSICAL EXAMINATION: GENERAL: Pleasant gentleman without distress. VITAL SIGNS: BP 117/74, HR 67, RR 16, height 6 feet 3-1/2 inches, weight 275.2 pounds, body mass index 33.9, temperature 96.8, oxygen saturation at room air 95%. HEENT: PERRLA, EOMI, evaluation of oropharynx showed tongue protrudes midline. Extremely low position of soft palate; Mallampati IV. NECK: Supple, no JVD. Thyroid is not palpable. Neck measures 17-1/2 inches in circumference. LUNGS: Clear to percussion and to auscultation. Good air exchange. No wheezing or rhonchi. HEART: S1, S2 regular. No murmurs, gallops, or rubs. ABDOMEN: Soft and nontender. Bowel sounds are present. No organomegaly appreciated. EXTREMITIES: No clubbing or cyanosis. SHANK CARRIER: Awake, alert, and oriented X3. Cranial nerves 2 to 7 intact. There is no fasciculation or atrophy. noted. No focal deficits observed. IMPRESSION: 1. Loud snoring, witnessed episodes of stopped breathing during sleep, multiple awakenings from sleep, extremely low position of soft palate, Mallampati IV, wide neck, 17-1/2 inches in circumference, sleepiness; [place] Sleepiness Scale increased at 14; obstructive sleep apnea-hypopnea syndrome. 2. Mild obesity by body mass index 33.9. 3. History of deep vein thrombosis. 4. Status post bilateral pulmonary embolism in 2018. 5. History of testicular cancer, treated by testiculectomy. PLAN: 1. Polysomnography for evaluation of patient's breathing during sleep. 2. CPAP/BiPAP titration if sleep study confirms obstructive sleep apnea-hypopnea syndrome. 3. Preferable position during sleep on the side. 4. No driving if patient feels any sleepiness. 5. I will see patient for follow up visit to explain results of testing and following plan. Thank you very much for referring this patient for consultation. Sincerely, Arjun Brown MD, PhD, FAASM Diplomat of [place] Board of Medical Specialties Sleep Medicine Board of [place] Board of Internal Medicine [employer]asing [employer] [facility] [place] MMODL / IJN: [id number] /
== END | disposition home or self-care (01) ==
LOC: SLEEP 14:53
PROVIDERS: ATTEND Internal Medicine
DX: G47.33 Obstructive sleep apnea (adult) (pediatric) (principal); E66.9 Obesity, unspecified; Z68.33 Body mass index [BMI] 33.0-33.9, adult; Z87.39 Personal history of other diseases of the musculoskeletal system and connective tissue; Z86.79 Personal history of other diseases of the circulatory system; Z85.47 Personal history of malignant neoplasm of testis
CPT/HCPCS: 99211

== ENCOUNTER → 2022-05-06 | Outpatient (CLI) | payer BC ==
--- NOTE | 2022-05-06 14:24 | P.PN ---
Subjective DATE: 05/06/2022 FOLLOW UP VISIT. Patient with obstructive sleep apnea hypopnea syndrome return to sleep center for follow-up visit. Recently patient had sleep study which documented obstructive sleep apnea hypopnea syndrome. Patient was initiated on PAP therapy and today is first visit after treatment was started. Patient was able to use PAP equipment every night for the whole night. The patient does not have significant problems with the mask, PAP pressure and humidification. [place] sleepiness scale is borderline 10. Patient sleeps from around 10:30 PM until 5 AM. I checked information from PAP unit. PAP unit pressure 512 centimeters of water average 8.3 cm H2O. Usage is 93 % for more then 4 hours, average 6 hours 39 minutes per night. Leak is 7.5 l/m, which is in acceptable range. Apnea Hypopnea Index is 0.3, which is normal. MEDICATIONS: None During physical exam: GENERAL: A pleasant patient without any distress. VITAL SIGNS: BP 143/80, HR 71, RR 16, weight 283.6, height 6 foot 3-1/2 inches, temperature 97.5, oxygen saturation at room air 97%. HEENT: PERRLA, EOMI.low position of soft palate, Mallapati 4. NECK: Supple. No JVD. LUNGS: Clear to percussion and to auscultation. Good air exchange. No wheezing or rhonchi. HEART: S1, S2 regular. ABDOMEN: Soft and nontender. Slightly obese EXTREMITIES: No clubbing or cyanosis. BATHING SUIT MAKER: Awake, alert, and oriented x3. No focal deficit. Impressions: 1. Obstructive sleep apnea-hypopnea syndrome. Patient demonstrated great compliance with treatment, benefiting from treatment. 2. Mild obesity. 3. History of deep venous thrombosis. 4. Status post bilateral pulmonary embolism in 2018. 5. History of testicular cancer, treated by testiclectomy.. Plan: 1. Continue using PAP equipment every night for the whole night. 2. To change air filter at least 1-2 times per month. 3. PAP unit should stay lower then position of the head. 4. Advised patient to remove all remaining water from humidifier canister daily and make it dry after each usage. Refill canister with fresh distilled water before each usage. 5. Sleep hygiene with regular time in bed for at least 8 hours. 6. Precautions related to driving. No driving if feel any sleepiness. 7. I will maintain prescription for PAP supplies including mask, tube, filters. 8. Follow up visit in 6 months or earlier if patient has any problems. 9. Watching weight. Thank you very much for allowing me to participate in the management of your patient. Arjun Brown MD, PhD, FAASM. Diplomat of [place] Board of Sleep Medicine, Sleep Medicine Board by [place] [employer] of Internal Medicine Sandblaster [employer] [facility] [place]
== END ==
LOC: SLEEP 13:42
PROVIDERS: ATTEND Internal Medicine
DX: G47.33 Obstructive sleep apnea (adult) (pediatric) (principal); E66.9 Obesity, unspecified; Z86.718 Personal history of other venous thrombosis and embolism; Z86.711 Personal history of pulmonary embolism; Z85.47 Personal history of malignant neoplasm of testis; Z90.79 Acquired absence of other genital organ(s)
CPT/HCPCS: 99212

== ENCOUNTER → 2022-11-18 | Outpatient (CLI) | payer BC ==
--- NOTE | 2022-11-18 15:51 | P.PN ---
Subjective DATE: 11/18/2022 FOLLOW UP VISIT. Patient with obstructive sleep apnea hypopnea syndrome return to sleep center for follow-up visit. Information from previous visit have been reviewed. Patient is using PAP equipment every night for the whole night, getting PAP supplies in time. The patient does not have significant problems with the mask, PAP unit and humidification. [place] sleepiness scale is 9, which is borderline. I checked information from PAP unit. PAP unit pressure 5-12, average 9.2 cm H2O. Usage is 96% and 92 % for more then 4 hours, average 6.4 hours per night. Leak is 6 l/m, which is in acceptable range. Apnea Hypopnea Index is 0.4, which is normal. MEDICATIONS: None During physical exam: GENERAL: A pleasant patient without any distress. VITAL SIGNS: BP 134/84, HR 63, RR 16 , weight 292.2, temperature 97.2, oxygen saturation at room air 97 % . HEENT: PERRLA, EOMI.low position of soft palate, Mallapati 4 . NECK: Supple. No JVD. LUNGS: Clear to percussion and to auscultation. Good air exchange. No wheezing or rhonchi. HEART: S1, S2 regular. ABDOMEN: Soft and nontender.[] EXTREMITIES: No clubbing or cyanosis. CHARHOUSE WORKER: Awake, alert, and oriented x3. No focal deficit. Impressions: 1. Obstructive sleep apnea-hypopnea syndrome. Patient demonstrated great compliance with treatment, benefiting from treatment. 2. History of deep venous thrombosis. 3. Mild obesity, patient increased his weight on 9 pounds. 4. History of testicular cancer status post testiclectomy. 5. Status post bilateral pulmonary embolism in 2018. Plan: 1. Continue using PAP equipment every night for the whole night. 2. To change air filter at least 1-2 times per month. 3. PAP unit should stay lower then position of the head. 4. Advised patient to remove all remaining water from humidifier canister daily and make it dry after each usage. Refill canister with fresh distilled water before each usage. 5. Sleep hygiene with regular time in bed for at least 8 hours. 6. Precautions related to driving. No driving if feel any sleepiness. 7. I will maintain prescription for PAP supplies including mask, tube, filters. 8. Watching and losing weight.. 9. Follow up visit in 6 months or earlier if patient has any problems. Thank you very much for allowing me to participate in the management of your patient. Arjun Brown MD, PhD, FAASM. Diplomat of [place] Board [employer] Sleep Medicine, Sleep Medicine Board by [place] [employer] of Internal Medicine Phlebotomy Tech [facility] [place]
== END ==
LOC: SLEEP 15:06
PROVIDERS: ATTEND Internal Medicine
DX: G47.33 Obstructive sleep apnea (adult) (pediatric) (principal); Z86.718 Personal history of other venous thrombosis and embolism; Z99.89 Dependence on other enabling machines and devices; E66.9 Obesity, unspecified; Z85.47 Personal history of malignant neoplasm of testis; Z86.711 Personal history of pulmonary embolism
CPT/HCPCS: 99212

== ENCOUNTER → 2023-06-09 | Outpatient (CLI) | payer BC ==
--- NOTE | 2023-06-09 16:16 | P.PN ---
Subjective DATE: 06/09/2023 FOLLOW UP VISIT. Patient with obstructive sleep apnea hypopnea syndrome return to sleep center for follow-up visit. Information from previous visit have been reviewed. Patient is using PAP equipment every night for the whole night, getting PAP supplies in time. The patient does not have significant problems with the mask, PAP unit and humidification. [place] sleepiness scale is 4. I checked information from PAP unit. PAP unit pressure 5-12, average 10.0 cm H2O. Usage is 100 % for more then 4 hours, average 7.5 hours per night. Leak is 6.8 l/m, which is in acceptable range. Apnea Hypopnea Index is 0.6, which is normal. MEDICATIONS: None at the present time During physical exam: GENERAL: A pleasant patient without any distress. VITAL SIGNS: BP 131/76, HR 59, RR 16, weight 299.8, temperature 98.1, oxygen saturation at room air 96 % . HEENT: PERRLA, EOMI.low position of soft palate, Mallapati 4 . NECK: Supple. No JVD. LUNGS: Clear to percussion and to auscultation. Good air exchange. No wheezing or rhonchi. HEART: S1, S2 regular. ABDOMEN: Soft and nontender. Slightly obese EXTREMITIES: No clubbing or cyanosis. RFID MANAGER: Awake, alert, and oriented x3. No focal deficit. Impressions: 1. Obstructive sleep apnea-hypopnea syndrome. Patient demonstrated great compliance with treatment, benefiting from treatment. 2. Mild obesity, patient increased weight of 7 pounds comparing with the previous visit. 3. History of DVT. 4. Status post testiclectomy or testicle cancer. 5. Status post bilateral pulmonary embolism in 2018. Plan: 1. Continue using PAP equipment every night for the whole night. 2. To change air filter at least 1-2 times per month. 3. PAP unit should stay lower then position of the head. 4. Advised patient to remove all remaining water from humidifier canister daily and make it dry after each usage. Refill canister with fresh distilled water before each usage. 5. Sleep hygiene with regular time in bed for at least 8 hours. 6. Precautions related to driving. No driving if feel any sleepiness. 7. I will maintain prescription for PAP supplies including mask, tube, filters. 8. Follow up visit in 6 months or earlier if patient has any problems. 9. Watching and losing weight. Thank you very much for allowing me to participate in the management of your patient. Arjun Brown MD, PhD, FAASM. Diplomat of [place] Board of Sleep Medicine, Sleep Medicine Board by [place] Board of Internal Medicine Jewelry Designer of [facility] [place]
== END ==
LOC: 3 N SLEEP 15:39
PROVIDERS: ATTEND Internal Medicine
DX: G47.33 Obstructive sleep apnea (adult) (pediatric) (principal); E66.9 Obesity, unspecified; Z86.718 Personal history of other venous thrombosis and embolism; Z86.711 Personal history of pulmonary embolism; Z85.47 Personal history of malignant neoplasm of testis
CPT/HCPCS: 99212

== ENCOUNTER → 2023-12-21 | Outpatient (CLI) | payer BC ==
--- NOTE | 2023-12-21 15:52 | P.PN ---
Subjective DATE: 12/21/2023 FOLLOW UP VISIT. Patient with obstructive sleep apnea hypopnea syndrome return to sleep center for follow-up visit. Information from previous visit have been reviewed. Patient is using PAP equipment every night for the whole night, getting PAP supplies in time. The patient does not have significant problems with the mask, PAP unit and humidification. [place]stone sleepiness scale is 5. I checked information from PAP unit. PAP unit pressure 5-12, average 7.6 cm H2O. Usage is 100 % for more then 4 hours, average 7.2 hours per night. Leak is 16 l/m, which is in acceptable range. Apnea Hypopnea Index is 0.2, which is perfect. MEDICATIONS: None at the present time During physical exam: GENERAL: A pleasant patient without any distress. VITAL SIGNS: BP 128/74, HR 58, RR 12, weight 253.6, temperature 98.0, oxygen saturation at room air 99 % . HEENT: PERRLA, EOMI.low position of soft palate, Mallapati 4 . NECK: Supple. No JVD. LUNGS: Clear to percussion and to auscultation. Good air exchange. No wheezing or rhonchi. HEART: S1, S2 regular. ABDOMEN: Soft and nontender.[] EXTREMITIES: No clubbing or cyanosis. HOSPICE REGISTERED NURSE: Awake, alert, and oriented x3. No focal deficit. Impressions: 1. Obstructive sleep apnea-hypopnea syndrome. Patient demonstrated great compliance with treatment, benefiting from treatment. 2. Mild obesity, BMI 31.6, patient lost 46 pounds since previous visit. 3. History of DVT. 4. Status post testicle ectomy for testicle cancer. 5. Status post bilateral pulmonary embolism in 2018. Plan: 1. Continue using PAP equipment every night for the whole night. 2. To change air filter at least 1-2 times per month. 3. PAP unit should stay lower then position of the head. 4. Advised patient to remove all remaining water from humidifier canister daily and make it dry after each usage. Refill canister with fresh distilled water before each usage. 5. Sleep hygiene with regular time in bed for at least 8 hours. 6. Precautions related to driving. No driving if feel any sleepiness. 7. I will maintain prescription for PAP supplies including mask, tube, filters. 8. Watching and continue losing weight. 9. Follow up visit in 6 months or earlier if patient has any problems. Thank you very much for allowing me to participate in the management of your patient. Arjun Brown MD, PhD, FAASM. Diplomat of [place] [employer], Sleep Medicine Board by [employer] Practice Nurse of [facility] [place]
== END ==
LOC: 3 N SLEEP 15:34
PROVIDERS: ATTEND Internal Medicine
DX: G47.33 Obstructive sleep apnea (adult) (pediatric) (principal); E66.9 Obesity, unspecified; Z86.711 Personal history of pulmonary embolism; Z86.718 Personal history of other venous thrombosis and embolism; Z85.47 Personal history of malignant neoplasm of testis; Z68.31 Body mass index [BMI] 31.0-31.9, adult; Z98.890 Other specified postprocedural states; Z99.89 Dependence on other enabling machines and devices
CPT/HCPCS: 99212

== ENCOUNTER → 2024-07-11 | Outpatient (CLI) | payer BC ==
[2024-07-11 15:59] VITALS: BP 127/75; PULSE 49; RESP 16; TEMP 98.2
--- NOTE | 2024-07-11 16:09 | P.PROGSL ---
Subjective DATE: 07/11/2024 FOLLOW UP VISIT. Patient with obstructive sleep apnea hypopnea syndrome return to sleep center for follow-up visit. Information from previous visit have been reviewed. Patient is using PAP equipment every night for the whole night, getting PAP supplies in time. The patient does not have significant problems with the mask, PAP unit and humidification. [place] sleepiness scale is 5, which is normal. I checked information from PAP unit. PAP unit pressure 5-12, average 9.4 cm H2O. Usage is 100% for more then 4 hours, average 7.5 hours per night. Leak is 5.1 l/m, which is in acceptable range. Apnea Hypopnea Index is perfect 0.5. MEDICATIONS have been reviewed, please see below. During physical exam: GENERAL: A pleasant patient without any distress. VITAL SIGNS: Please see below, weight is 244.8 lbs. HEENT: PERRLA, EOMI.low position of soft palate, Mallapati 4 . NECK: Supple. No JVD. LUNGS: Clear to percussion and to auscultation. Good air exchange. No wheezing or rhonchi. HEART: S1, S2 regular. ABDOMEN: Soft and nontender.[] EXTREMITIES: No clubbing or cyanosis. FURNITURE DIPPER: Awake, alert, and oriented x3. No focal deficit. Impressions: 1. Obstructive sleep apnea-hypopnea syndrome. Patient demonstrated great compliance with treatment, benefiting from treatment. 2. History of DVT. 3. Status post testicle ectomy for testicle cancer. 4. Status post bilateral lymph pulmonary embolism in 2018. 5. Mild obesity, BMI 31.1, patient lost 7 pounds comparing with previous visit. Plan: 1. Continue using PAP equipment every night for the whole night. 2. Sleep hygiene with regular time in bed for at least 7.5-8 hours 3. PAP unit should stay lower then position of the head. 4. Advised patient to remove all remaining water from humidifier canister daily and make it dry after each usage. Refill canister with fresh distilled water before each usage. 5. Watching weight. 6. Precautions related to driving. No driving if feel any sleepiness. 7. I will maintain prescription for PAP supplies including mask, tube, filters. 8. Follow up visit in 6 months or earlier if patient has any problems. Thank you very much for allowing me to participate in the management of your patient. Arjun Brown MD, PhD, FAASM. Diplomat of [place] [employer], Sleep Medicine Board by [place] [employer] Pharmacy Resident of [facility] [place] Objective - Vital Signs Vital Signs: Vital Signs Temp 98.2 F 07/11/24 15:59 Pulse 49 L 07/11/24 15:59 Resp 16 07/11/24 15:59 BP 127/75 07/11/24 15:59 Pulse Ox 98 07/11/24 15:59 FiO2 Intake & Output 07/10/24 07/11/24 07/11/24 18:59 06:59 18:59 Weight 110.903 kg Home Medications: Home Medications Medication Instructions Recorded Confirmed Type No Known Home Medications 09/13/18 11/19/21 History
== END ==
LOC: 3 N SLEEP 15:20
PROVIDERS: ATTEND Internal Medicine
CPT/HCPCS: 99212

== ENCOUNTER → 2025-02-28 | Outpatient (CLI) | payer BC ==
[2025-02-28 11:04] VITALS: BP 122/81; PULSE 62; RESP 16; TEMP 97.8
--- NOTE | 2025-02-28 12:35 | P.PROGSL ---
Subjective DATE: 02/28/2025 FOLLOW UP VISIT. Patient with obstructive sleep apnea hypopnea syndrome return to sleep center for follow-up visit. Information from previous visit have been reviewed. Patient is using PAP equipment every night for the whole night, getting PAP supplies in time. The patient does not have significant problems with the mask, PAP unit and humidification. [place] sleepiness scale is 4, which is normal. I checked information from PAP unit. PAP unit pressure 5-12, average 9 cm H2O. Usage is 100% for more then 4 hours, average 8.4 hours per night. Leak is 6 l/m, which is in acceptable range. Apnea Hypopnea Index is 0.3, which is normal. MEDICATIONS have been reviewed, please see below. During physical exam: GENERAL: A pleasant patient without any distress. VITAL SIGNS: Please see below, weight is 274 lbs. HEENT: PERRLA, EOMI.low position of soft palate, Mallapati 4 . NECK: Supple. No JVD. LUNGS: Clear to percussion and to auscultation. Good air exchange. No wheezing or rhonchi. HEART: S1, S2 regular. ABDOMEN: Soft and nontender.[] EXTREMITIES: No clubbing or cyanosis. SUPERVISOR PAINT DEPARTMENT: Awake, alert, and oriented x3. No focal deficit. Impressions: 1. Obstructive sleep apnea-hypopnea syndrome. Patient demonstrated great compliance with treatment, benefiting from treatment. 2. History of DVT. 3. Status post testicle ectomy for testicle cancer. 4. Status post bilateral pulmonary embolism in 2018. 5. Mild obesity, BMI 34.3, patient increased weight on 30 pounds comparing with previous visit. Plan: 1. Continue using PAP equipment every night for the whole night. 2. Sleep hygiene with regular time in bed for at least 7.5-8 hours 3. PAP unit should stay lower then position of the head. 4. Advised patient to remove all remaining water from humidifier canister daily and make it dry after each usage. Refill canister with fresh distilled water before each usage. 5. Watching weight. 6. Precautions related to driving. No driving if feel any sleepiness. 7. I will maintain prescription for PAP supplies including mask, tube, filters. 8. Follow up visit in 8 months or earlier if patient has any problems. Thank you very much for allowing me to participate in the management of your patient. Arjun Brown MD, PhD, FAASM. Diplomat of [place] [employer], Sleep Medicine Board by [place] [employer] Pneumatic Hoist Operator of [facility] [place] Objective - Vital Signs Vital Signs: Vital Signs Temp 97.8 F 02/28/25 11:03 Pulse 62 02/28/25 11:03 Resp 16 02/28/25 11:03 BP 122/81 02/28/25 11:03 Pulse Ox 98 02/28/25 11:03 FiO2 Intake & Output 02/27/25 02/28/25 02/28/25 18:59 06:59 18:59 Weight 124.284 kg Home Medications: Home Medications Medication Instructions Recorded Confirmed Type No Known Home Medications 09/13/18 11/19/21 History
== END ==
LOC: 3 N SLEEP 10:43
PROVIDERS: ATTEND Internal Medicine
DX: G47.33 Obstructive sleep apnea (adult) (pediatric) (principal); E66.9 Obesity, unspecified; Z68.34 Body mass index [BMI] 34.0-34.9, adult; Z86.718 Personal history of other venous thrombosis and embolism; Z99.89 Dependence on other enabling machines and devices; Z90.79 Acquired absence of other genital organ(s); Z85.47 Personal history of malignant neoplasm of testis; Z86.711 Personal history of pulmonary embolism
CPT/HCPCS: 99212